=== PATIENT | male | born 1965 | race Two or more races ===

== ENCOUNTER 2017-04-23 18:11 | Inpatient (IN) | payer SELFPAY ==
[~2017-04-23] VITALS: Ht 177.8 cm; Wt 64.1 kg
[~2017-04-23 18:11] MED LIST: AMOX875T PO; ASPI-482 PO; OMEP20TA63 PO; OXYC-323 PO
--- NOTE | 2017-04-23 18:49 | EKG ---
[facility] [address] [place] [address] Test Date: 2017-04-23 Test Time: 18:33:20 Pat Name: LETICIA NO Department: Room: Gender: M Resident Buyer: YUE : 1965 Requested By: EDITH VALENZUELA Order Number: [id number] Reading MD: Selvin Ritter Measurements Intervals [place] Rate: 63 P: 0 RI: 224 QRS: 15 QRSD: 100 T: 34 QT: 378 QTc: 390 Interpretive Statements SINUS RHYTHM PROLONGED RI INTERVAL LOW LIMB LEAD VOLTAGE RI6.01 Unconfirmed report Compared to ECG 03/04/2017 12:14:56 First degree AV block now present Atrial fibrillation no longer present Electronically Signed On 05-04-2017 12:34:54 CDT by Selvin Ritter
[2017-04-23 18:57] LABS: BASO # 0.1 x10^3/uL (0.0-0.2); BASO % 1 % (0-3); EOS % 4 % (0-3); HEMOGLOBIN 10.8 g/dL (13.0-17.5); LYMPH # 1.6 x10^3/uL (1.0-4.8); LYMPH % 22 % (24-48); MEAN CORPUSCULAR HEMOGLOBIN 35 pg (25-35); MEAN CORPUSCULAR HGB CONC 34 g/dL (31-37); MEAN CORPUSCULAR VOLUME 103 fL (79-100); MONO % 6 % (0-9); NEUT % 67 % (31-73); PLATELET COUNT 189 x10^3/uL (140-400); RED CELL DISTRIBUTION WIDTH 13.3 % (11.5-14.5); WHITE BLOOD COUNT 7.4 x10^3/uL (4.0-11.0)
[2017-04-23 19:04] LABS: CALCIUM 9.1 mg/dL (8.5-10.1); GFR 77.9; POTASSIUM 4.6 mmol/L (3.5-5.1)
[2017-04-23 19:11] LABS: ALBUMIN 4.1 g/dL (3.4-5.0); ALBUMIN/GLOBULIN RATIO 1.2 (1.0-1.7); TOTAL BILIRUBIN 0.7 mg/dL (0.2-1.0); TOTAL PROTEIN 7.4 g/dL (6.4-8.2)
[2017-04-23] MEDS ORDERED: ACETAMINOPHEN 500 MG TABLET PO ONE (20:00)
[2017-04-23 20:32] LABS: BARBITURATES NEG (NEG); BENZODIAZEPINES NEG (NEG); CANNABINOIDS POS (NEG); COCAINE NEG (NEG); METHADONE NEG (NEG); OPIATES NEG (NEG); PHENCYCLIDINE NEG (NEG)
--- NOTE | 2017-04-23 20:56 | PHYS DOC ---
Past Medical History Past Medical History: Depression, Other Additional Past Medical Histor: PTSD, BRADYCARDIA Past Surgical History: Other Additional Past Surgical Histo: R thumb Alcohol Use: Heavy Drug Use: Marijuana Adult General Chief Complaint Chief Complaint: CHEST PAIN HPI HPI Patient is a 52 year old male with history of alcohol abuse, dependence who is evaluated this facility 2 weeks ago for syncope and bradycardia. It is recommended at that time that the patient had a pacemaker placed. Patient decided to leave the hospital AGAINST MEDICAL ADVICE. 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 Denies trauma, headache, chest pain, palpitations shortness breath. Currently asymptomatic. Patient acknowledges drinking alcohol prior to ED arrival after work. Denies illicit drug use with exception of marijuana. Review of Systems Review of Systems Review symptoms as per history of present illness. All other review symptoms are negative. Current Medications Current Medications Current Medications Medications (Trade) Dose Ordered Sig/Rose Mary Start Time Stop Time Status Last Admin Dose Admin Acetaminophen (Tylenol) 1,000 mg 1X ONCE 04/23/17 20:00 04/23/17 20:01 DC 04/23/17 20:03 1,000 MG Allergies Allergies Allergies Coded Allergies Type Severity Reaction Last Updated Verified No Known Drug Allergies 03/04/17 No Physical Exam Physical Exam Constitutional: Well developed, well nourished, no acute distress, non-toxic appearance. [] HENT: Normocephalic, atraumatic, bilateral external ears normal, oropharynx moist, no oral exudates, nose normal. [] Eyes: PERRLA, EOMI, conjunctiva normal, no discharge. [] Neck: Normal range of motion, no tenderness, supple, no stridor. [] Cardiovascular:Heart rate regular rhythm, no murmur [] Lungs & Thorax: Bilateral breath sounds clear to auscultation [] Abdomen: Bowel sounds normal, soft, no tenderness, no masses, no pulsatile masses. [] Skin: Warm, dry, no erythema, no rash. [] Back: No tenderness, no CVA tenderness. [] Extremities: No tenderness, no cyanosis, no clubbing, ROM intact, no edema. [] Neurologic: Alert and oriented X 3, normal motor function, normal sensory function, no focal deficits noted. [] Psychologic: Affect normal, judgement normal, mood normal. [] Current Patient Data Vital Signs Vital Signs Date Time Temp Pulse Resp B/P (MAP) Pulse Ox O2 Delivery O2 Flow Rate FiO2 04/23/17 18:31 98.1 71 18 145/87 (106) 99 Room Air 98.1 Lab Values Laboratory Tests Test 04/23/17 18:45 04/23/17 20:16 White Blood Count 7.4 x10^3/uL (4.0-11.0) Red Blood Count 3.10 x10^6/uL (4.30-5.70) L Hemoglobin 10.8 g/dL (13.0-17.5) L Hematocrit 32.0 % (39.0-53.0) L Mean Corpuscular Volume 103 fL (79-100) H Mean Corpuscular Hemoglobin 35 pg (25-35) Mean Corpuscular Hemoglobin Concent 34 g/dL (31-37) Red Cell Distribution Width 13.3 % (11.5-14.5) Platelet Count 189 x10^3/uL (140-400) Neutrophils (%) (Auto) 67 % (31-73) Lymphocytes (%) (Auto) 22 % (24-48) L Monocytes (%) (Auto) 6 % (0-9) Eosinophils (%) (Auto) 4 % (0-3) H Basophils (%) (Auto) 1 % (0-3) Neutrophils # (Auto) 5.0 x10^3uL (1.8-7.7) Lymphocytes # (Auto) 1.6 x10^3/uL (1.0-4.8) Monocytes # (Auto) 0.4 x10^3/uL (0.0-1.1) Eosinophils # (Auto) 0.3 x10^3/uL (0.0-0.7) Basophils # (Auto) 0.1 x10^3/uL (0.0-0.2) Sodium Level 137 mmol/L (136-145) Potassium Level 4.6 mmol/L (3.5-5.1) Chloride Level 99 mmol/L (98-107) Carbon Dioxide Level 27 mmol/L (21-32) Anion Gap 11 (6-14) Blood Urea Nitrogen 10 mg/dL (8-26) Creatinine 1.0 mg/dL (0.7-1.3) Estimated GFR (Cockcroft-Gault) 77.9 BUN/Creatinine Ratio 10 (6-20) Glucose Level 99 mg/dL (70-99) Calcium Level 9.1 mg/dL (8.5-10.1) Total Bilirubin 0.7 mg/dL (0.2-1.0) Aspartate Amino Transferase (AST) 50 U/L (15-37) H Alanine Aminotransferase (ALT) 36 U/L (16-63) Alkaline Phosphatase 70 U/L (46-116) Creatine Kinase 211 U/L (39-308) Troponin I Quantitative < 0.017 ng/mL (0.000-0.055) MM-Flr-A-Type Natriuretic Peptide 59 pg/mL (0-124) Total Protein 7.4 g/dL (6.4-8.2) Albumin 4.1 g/dL (3.4-5.0) Albumin/Globulin Ratio 1.2 (1.0-1.7) Ethyl Alcohol Level 244 mg/dL (0-10) H Urine Opiates Screen Neg (NEG) Urine Methadone Screen Neg (NEG) Urine Barbiturates Neg (NEG) Urine Phencyclidine Screen Neg (NEG) Urine Amphetamine/Methamphetamine Neg (NEG) Urine Benzodiazepines Screen Neg (NEG) Urine Cocaine Screen Neg (NEG) Urine Cannabinoids Screen Pos (NEG) Urine Ethyl Alcohol Pos (NEG) Laboratory Tests 04/23/17 18:45 Laboratory Tests 04/23/17 18:45 EKG EKG [EKG: Sinus rhythm, no acute ST-T wave changes.] Radiology/Procedures Radiology/Procedures [Chest x-ray: No acute cardiopulmonary disease.] Course & Med Decision Making Course & Med Decision Making Pertinent Labs and Imaging studies reviewed. (See chart for details) [Syncope. Patient vital signs stable. Dr. Romero in ED for admission. Courtesy bridges provided.] Dragon Disclaimer Dragon Disclaimer This electronic medical record was generated, in whole or in part, using a voice recognition dictation system. Departure Departure Impression: Primary Impression: Syncope Disposition: ADMITTED INPATIENT Admitting Physician: Other (Dr. Romero) Referrals: NO PCP (PCP) EDITH VALENZUELA DO Apr 23, 2017 20:56
[2017-04-23] MEDS ORDERED: ASA/APAP/CAFFEINE 250/250/65MG TABLET. PO PRN (22:00)
[2017-04-23] MEDS ORDERED: ACETAMINOPHEN 325 MG TABLET. PO PRN (22:00)
--- NOTE | 2017-04-23 22:30 | HP ---
ADMIT DATE: 04/23/2017 CHIEF COMPLAINT: Syncope. HISTORY OF PRESENT ILLNESS: The patient is a 52-year-old gentleman who relates that he had been admitted to [facility] a few days ago but left AMA, despite recommendations of pacemaker for symptomatic bradycardia. Since his discharge, he apparently has had multiple syncopal episodes, sometimes with injury including hitting his head. Today, he apparently had yet another episode Or three), ended up at his mom's place and his mother decided to take him to the Emergency Room. In the Emergency Room, currently he is asymptomatic. He does request pain medications for headache as he states he actually did hit his head. He drinks alcohol regularly, downplays this, but mother affirms daily use. He admits to 2 beers prior to coming to the Emergency Room. He denies any illicit drug use save for occasional pot. Of note, his urine drug screen is actually positive for cannabinoids, otherwise negative. His alcohol level is 244, indicating 2 beers are quite potent in him.... PAST MEDICAL HISTORY: Bradycardia as above, alcoholism, posttraumatic stress disorder, depression. PAST SURGICAL HISTORY: None. FAMILY HISTORY: None. SOCIAL HISTORY: Lives with a roommate. Denies any tobacco use, occasional marijuana. Admits to 3 beers 3 times a week, which I suspect is grossly underestimating his actual use. ALLERGIES: No known drug allergies. MEDICATIONS: None listed. REVIEW OF SYSTEMS: Positive as per HPI. Currently, feels fine and denies any other symptoms in entire organ system review. PHYSICAL EXAMINATION: VITAL SIGNS: Show blood pressure of 145/87, heart rate of 71, respiratory rate at 18. GENERAL: This is a 52-year-old man, alert and oriented, no acute distress. HEENT: Shows no scleral icterus. Oral mucosa is pink and moist. Dentition is poor. NECK: Supple, without any lymphadenopathy. LUNGS: Clear. HEART: Regular rate and rhythm. ABDOMEN: Has positive bowel sounds, soft, nontender. EXTREMITIES: Show no edema. SKIN: Warm, soft and dry. LABORATORY DATA: CBC with a WBC of 7.4, hemoglobin 10.8, MCV of 103 and platelets of 189. Chemistries with a BUN and creatinine of 10 and 0.1, normal electrolytes. AST is slightly elevated at 50, other LFTs within normal. Albumin at 4.1. Initial troponin is negative. Urine shows no signs of infection. IMAGING: Chest x-ray reviewed by myself reveals clear lung poe and normal heart size. ASSESSMENT AND PLAN: The patient is a 52-year-old gentleman who presents with recurrent syncope, suspected to be secondary to bradycardia. He had been worked up during his last hospitalization, was recommended to receive pacer. He is not willing to go through with pacer placement. His biztalk developer, Dr. Morgan, will be consulted in the morning. In the meantime, he will be admitted, [facility] protocol for alcohol withdrawal prevention will be instituted. We will monitor his liver function tests and other electrolytes as well. He does not appear to be dehydrated at this time. He requests antibiotics for a sinusitis diagnosed at previous hospitalization. He did fill a script for antibiotics, but never took them. will start on Augmentin NILO SKINNER MD DR: UR/nts JOB#: [id number] / [id number] ALANIS
[2017-04-23 22:50] VITALS: BP 108/66
[2017-04-23] MEDS: chlordiazePOXIDE HCL 25 MG CAPSULE PO SCH (23:38)
[2017-04-24] VITALS (7 sets, daily range): BP systolic 107–140; BP diastolic 55–81
[2017-04-24] MEDS: chlordiazePOXIDE HCL 25 MG CAPSULE PO SCH ×4 (03:29→22:29)
[2017-04-24] MEDS: PANTOPRAZOLE 40 MG TABLET.DR. PO SCH (09:27)
[2017-04-24] MEDS: AMOXICILLIN/K CLAV 875/125MG TABLET. PO SCH ×2 (09:27→21:01)
[2017-04-24] MEDS: ASPIRIN ENTERIC COATED 81 MG TABLET.DR. PO SCH (09:28)
[2017-04-24] MEDS: MULTIVIT INFUSN,ADULT 4,VIT K 10 ML, THIAMINE 100 MG, FOLIC ACID 1 MG in IV NORMAL SALI... IV SCH (09:30)
--- NOTE | 2017-04-24 09:39 | RAD ---
EXAM: Chest, single view. HISTORY: Shortness of breath. COMPARISON: 03/04/2017. FINDINGS: A frontal view of the chest is obtained. There is no infiltrate, effusion or pneumothorax. The heart is normal in size. There are few calcified granulomas. There are healed left rib fractures. There are prominent air-filled loops of bowel within the upper abdomen. IMPRESSION: No acute pulmonary finding.
[2017-04-24] MEDS ORDERED: MORPHINE SULFATE 4 MG/ML DISP.SYRIN. IV PRN (09:45)
--- NOTE | 2017-04-24 13:05 | PDOC ---
PROGRESS NOTES Chief Complaint Chief Complaint 1. Syncope in the background of severe bradycardia 2. 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 recent fall History of Present Illness History of Present Illness Sore neck from his prev fall - no injuries Ready to have pacer done this time Eating lunch Request hydrocodone for sore neck PLAN: Lortab prn Await cards rounds - will likely need pacer NO AV roosevelt blocking agents pls Keep TELE Vitals Vitals Vital Signs Date Time Temp Pulse Resp B/P (MAP) Pulse Ox O2 Delivery O2 Flow Rate FiO2 04/24/17 10:58 98.2 54 18 111/66 (81) 97 Room Air 98.2 04/24/17 08:00 2.0 Physical Exam General: Alert, Oriented X3, Cooperative Heart: Regular rate Lungs: Clear, Other Abdomen: Normal bowel sounds, Soft Extremities: No clubbing, No cyanosis Skin: No rashes, No breakdown Labs LABS Laboratory Tests Test 04/23/17 18:45 04/23/17 20:16 White Blood Count 7.4 x10^3/uL (4.0-11.0) Red Blood Count 3.10 x10^6/uL (4.30-5.70) Hemoglobin 10.8 g/dL (13.0-17.5) Hematocrit 32.0 % (39.0-53.0) Mean Corpuscular Volume 103 fL (79-100) Mean Corpuscular Hemoglobin 35 pg (25-35) Mean Corpuscular Hemoglobin Concent 34 g/dL (31-37) Red Cell Distribution Width 13.3 % (11.5-14.5) Platelet Count 189 x10^3/uL (140-400) Neutrophils (%) (Auto) 67 % (31-73) Lymphocytes (%) (Auto) 22 % (24-48) Monocytes (%) (Auto) 6 % (0-9) Eosinophils (%) (Auto) 4 % (0-3) Basophils (%) (Auto) 1 % (0-3) Neutrophils # (Auto) 5.0 x10^3uL (1.8-7.7) Lymphocytes # (Auto) 1.6 x10^3/uL (1.0-4.8) Monocytes # (Auto) 0.4 x10^3/uL (0.0-1.1) Eosinophils # (Auto) 0.3 x10^3/uL (0.0-0.7) Basophils # (Auto) 0.1 x10^3/uL (0.0-0.2) Sodium Level 137 mmol/L (136-145) Potassium Level 4.6 mmol/L (3.5-5.1) Chloride Level 99 mmol/L (98-107) Carbon Dioxide Level 27 mmol/L (21-32) Anion Gap 11 (6-14) Blood Urea Nitrogen 10 mg/dL (8-26) Creatinine 1.0 mg/dL (0.7-1.3) Estimated GFR (Cockcroft-Gault) 77.9 BUN/Creatinine Ratio 10 (6-20) Glucose Level 99 mg/dL (70-99) Calcium Level 9.1 mg/dL (8.5-10.1) Total Bilirubin 0.7 mg/dL (0.2-1.0) Aspartate Amino Transf (AST/SGOT) 50 U/L (15-37) Alanine Aminotransferase (ALT/SGPT) 36 U/L (16-63) Alkaline Phosphatase 70 U/L (46-116) Creatine Kinase 211 U/L (39-308) Troponin I Quantitative < 0.017 ng/mL (0.000-0.055) TY-Ixm-S-Type Natriuretic Peptide 59 pg/mL (0-124) Total Protein 7.4 g/dL (6.4-8.2) Albumin 4.1 g/dL (3.4-5.0) Albumin/Globulin Ratio 1.2 (1.0-1.7) Thyroid Stimulating Hormone (TSH) 1.213 uIU/mL (0.358-3.74) Ethyl Alcohol Level 244 mg/dL (0-10) Urine Opiates Screen Neg (NEG) Urine Methadone Screen Neg (NEG) Urine Barbiturates Neg (NEG) Urine Phencyclidine Screen Neg (NEG) Urine Amphetamine/Methamphetamine Neg (NEG) Urine Benzodiazepines Screen Neg (NEG) Urine Cocaine Screen Neg (NEG) Urine Cannabinoids Screen Pos (NEG) Urine Ethyl Alcohol Pos (NEG) Review of Systems Review of Systems \sore neck, all else is neg Assessment and Plan Assessmemt and Plan Problems Medical Problems: (1) Syncope Status: Acute Problems: Comment Review of Relevant I have reviewed the following items edy (where applicable) has been applied. Labs Laboratory Tests Test 04/23/17 18:45 04/23/17 20:16 White Blood Count 7.4 x10^3/uL (4.0-11.0) Red Blood Count 3.10 x10^6/uL (4.30-5.70) Hemoglobin 10.8 g/dL (13.0-17.5) Hematocrit 32.0 % (39.0-53.0) Mean Corpuscular Volume 103 fL (79-100) Mean Corpuscular Hemoglobin 35 pg (25-35) Mean Corpuscular Hemoglobin Concent 34 g/dL (31-37) Red Cell Distribution Width 13.3 % (11.5-14.5) Platelet Count 189 x10^3/uL (140-400) Neutrophils (%) (Auto) 67 % (31-73) Lymphocytes (%) (Auto) 22 % (24-48) Monocytes (%) (Auto) 6 % (0-9) Eosinophils (%) (Auto) 4 % (0-3) Basophils (%) (Auto) 1 % (0-3) Neutrophils # (Auto) 5.0 x10^3uL (1.8-7.7) Lymphocytes # (Auto) 1.6 x10^3/uL (1.0-4.8) Monocytes # (Auto) 0.4 x10^3/uL (0.0-1.1) Eosinophils # (Auto) 0.3 x10^3/uL (0.0-0.7) Basophils # (Auto) 0.1 x10^3/uL (0.0-0.2) Sodium Level 137 mmol/L (136-145) Potassium Level 4.6 mmol/L (3.5-5.1) Chloride Level 99 mmol/L (98-107) Carbon Dioxide Level 27 mmol/L (21-32) Anion Gap 11 (6-14) Blood Urea Nitrogen 10 mg/dL (8-26) Creatinine 1.0 mg/dL (0.7-1.3) Estimated GFR (Cockcroft-Gault) 77.9 BUN/Creatinine Ratio 10 (6-20) Glucose Level 99 mg/dL (70-99) Calcium Level 9.1 mg/dL (8.5-10.1) Total Bilirubin 0.7 mg/dL (0.2-1.0) Aspartate Amino Transf (AST/SGOT) 50 U/L (15-37) Alanine Aminotransferase (ALT/SGPT) 36 U/L (16-63) Alkaline Phosphatase 70 U/L (46-116) Creatine Kinase 211 U/L (39-308) Troponin I Quantitative < 0.017 ng/mL (0.000-0.055) LW-Mtp-J-Type Natriuretic Peptide 59 pg/mL (0-124) Total Protein 7.4 g/dL (6.4-8.2) Albumin 4.1 g/dL (3.4-5.0) Albumin/Globulin Ratio 1.2 (1.0-1.7) Thyroid Stimulating Hormone (TSH) 1.213 uIU/mL (0.358-3.74) Ethyl Alcohol Level 244 mg/dL (0-10) Urine Opiates Screen Neg (NEG) Urine Methadone Screen Neg (NEG) Urine Barbiturates Neg (NEG) Urine Phencyclidine Screen Neg (NEG) Urine Amphetamine/Methamphetamine Neg (NEG) Urine Benzodiazepines Screen Neg (NEG) Urine Cocaine Screen Neg (NEG) Urine Cannabinoids Screen Pos (NEG) Urine Ethyl Alcohol Pos (NEG) Laboratory Tests Test 04/23/17 18:45 04/23/17 20:16 White Blood Count 7.4 x10^3/uL (4.0-11.0) Red Blood Count 3.10 x10^6/uL (4.30-5.70) Hemoglobin 10.8 g/dL (13.0-17.5) Hematocrit 32.0 % (39.0-53.0) Mean Corpuscular Volume 103 fL (79-100) Mean Corpuscular Hemoglobin 35 pg (25-35) Mean Corpuscular Hemoglobin Concent 34 g/dL (31-37) Red Cell Distribution Width 13.3 % (11.5-14.5) Platelet Count 189 x10^3/uL (140-400) Neutrophils (%) (Auto) 67 % (31-73) Lymphocytes (%) (Auto) 22 % (24-48) Monocytes (%) (Auto) 6 % (0-9) Eosinophils (%) (Auto) 4 % (0-3) Basophils (%) (Auto) 1 % (0-3) Neutrophils # (Auto) 5.0 x10^3uL (1.8-7.7) Lymphocytes # (Auto) 1.6 x10^3/uL (1.0-4.8) Monocytes # (Auto) 0.4 x10^3/uL (0.0-1.1) Eosinophils # (Auto) 0.3 x10^3/uL (0.0-0.7) Basophils # (Auto) 0.1 x10^3/uL (0.0-0.2) Sodium Level 137 mmol/L (136-145) Potassium Level 4.6 mmol/L (3.5-5.1) Chloride Level 99 mmol/L (98-107) Carbon Dioxide Level 27 mmol/L (21-32) Anion Gap 11 (6-14) Blood Urea Nitrogen 10 mg/dL (8-26) Creatinine 1.0 mg/dL (0.7-1.3) Estimated GFR (Cockcroft-Gault) 77.9 BUN/Creatinine Ratio 10 (6-20) Glucose Level 99 mg/dL (70-99) Calcium Level 9.1 mg/dL (8.5-10.1) Total Bilirubin 0.7 mg/dL (0.2-1.0) Aspartate Amino Transf (AST/SGOT) 50 U/L (15-37) Alanine Aminotransferase (ALT/SGPT) 36 U/L (16-63) Alkaline Phosphatase 70 U/L (46-116) Creatine Kinase 211 U/L (39-308) Troponin I Quantitative < 0.017 ng/mL (0.000-0.055) VO-Uzj-X-Type Natriuretic Peptide 59 pg/mL (0-124) Total Protein 7.4 g/dL (6.4-8.2) Albumin 4.1 g/dL (3.4-5.0) Albumin/Globulin Ratio 1.2 (1.0-1.7) Thyroid Stimulating Hormone (TSH) 1.213 uIU/mL (0.358-3.74) Ethyl Alcohol Level 244 mg/dL (0-10) Urine Opiates Screen Neg (NEG) Urine Methadone Screen Neg (NEG) Urine Barbiturates Neg (NEG) Urine Phencyclidine Screen Neg (NEG) Urine Amphetamine/Methamphetamine Neg (NEG) Urine Benzodiazepines Screen Neg (NEG) Urine Cocaine Screen Neg (NEG) Urine Cannabinoids Screen Pos (NEG) Urine Ethyl Alcohol Pos (NEG) Medications Current Medications Acetaminophen (Tylenol) 1,000 mg 1X ONCE PO Last administered on 04/23/17 20: 03; Start 04/23/17 at 20:00; Stop 04/23/17 at 20:01; Status DC Aspirin (Ecotrin) 81 mg DAILY PO Last administered on 04/24/17 09:28; Start at 09:00 Pantoprazole Sodium (Protonix) 40 mg DAILYAC PO Last administered on 04/24/17 09:27; Start 04/24/17 at 07:30 Acetaminophen/ Aspirin/Caffeine (Excedrin Migraine) 1 tab PRN Q6HRS PRN PO MIGRAINE HEADACHE Last administered on 04/24/17 09:28; Start 04/23/17 at 22:00 Acetaminophen (Tylenol) 650 mg PRN Q6HRS PRN PO HEADACHE; Start 04/23/17 at 22: 00 Multivitamins 10 ml/Thiamine HCl 100 mg/Folic Acid 1 mg/Sodium Chloride 1,011.2 ml @ 100 mls/ hr DAILY IV Last administered on 04/24/17 09:30; Start at 09:00; Stop 04/29/17 at 08:59 Chlordiazepoxide (Librium) 25 mg Q6H PO Last administered on 04/24/17 10:19; Start 04/23/17 at 22:30; Stop 04/25/17 at 04:31 Amoxicillin/ Clavulanate Potassium (Augmentin 875/ 125mg) 1 tab BID PO Last administered on 04/24/17 09:27; Start 04/24/17 at 09:00 Morphine Sulfate 1 mg PRN Q2HR PRN IV PAIN; Start 04/24/17 at 09:45 Ondansetron HCl (Zofran) 4 mg PRN Q6HRS PRN IV NAUSEA/VOMITING; Start 04/24/17 at 09:45 Active Scripts Active Reported Amoxicillin 875 Mg Tablet 1 Tab PO BID Percocet 5-325 Mg Tablet (Oxycodone/Acetaminophen) 1 Each Tablet 1 Tab PO Q6HRS Aspir 81 (Aspirin) 81 Mg Tablet. 1 Tab PO DAILY Prilosec Otc (Omeprazole Magnesium) 20 Mg Tablet. 1 Tab PO DAILY Vitals/I & O Vital Sign - Last 24 Hours 04/23/17 04/23/17 04/23/17 04/23/17 18:31 19:00 19:30 20:00 Temp 98.1 98.1 Pulse 71 60 58 54 Resp 18 23 26 16 B/P (MAP) 145/87 (106) 128/81 (97) 112/72 (85) 115/70 (85) Pulse Ox 99 98 100 97 O2 Delivery Room Air 04/23/17 04/23/17 04/23/17 04/23/17 20:30 21:00 21:30 22:00 Pulse 60 54 64 64 Resp 15 15 B/P (MAP) 122/79 (93) 117/71 (86) 123/75 (91) 137/68 (91) Pulse Ox 98 99 99 99 04/23/17 04/23/17 04/23/17 04/24/17 22:50 22:50 23:09 03:20 Temp 97.7 97.7 98.0 97.7 97.7 98.0 Pulse 57 57 59 Resp 18 18 18 B/P (MAP) 108/66 (80) 108/66 (80) 107/55 (72) Pulse Ox 99 99 99 O2 Delivery Room Air Room Air Room Air Nasal Cannula O2 Flow Rate 2.0 04/24/17 04/24/17 04/24/17 07:00 08:00 10:58 Temp 98.0 98.2 98.0 98.2 Pulse 52 54 Resp 18 18 B/P (MAP) 110/62 (78) 111/66 (81) Pulse Ox 98 97 O2 Delivery Room Air Room Air Room Air O2 Flow Rate 2.0 JARRETT SIBLEY MD Apr 24, 2017 13:05
[2017-04-24] MEDS ORDERED: FLU VACC QS2017-18 (36MOS+)/PF 0.5 ML SYRINGE. VAX IM ONE (14:00)
[2017-04-24] MEDS: HYDROcodone/APAP 5/325MG 1 TAB TABLET PO PRN ×2 (14:39→21:01)
--- NOTE | 2017-04-24 17:47 | PDOC2 ---
CONSULT Date of Consult Date of Consult DATE: 04/24/17 TIME: 17:41 Reason for Consult Reason for Consult: Syncope Referring Physician Referring Physician: Dr. Ayala Identification/Chief Complaint Chief Complaint Syncope Problems: History of Present Illness Reason for Visit: This patient is a 52-year-old gentleman that has a known history of bradycardia. Several years ago he had an admission to [facility] where he was told that he was bradycardic and that he was going to need a pacemaker. Since then he has continued to have some episodes of bradycardia and lately they have been getting worse. He had syncopal episodes that brought him in a few weeks ago and he was found to have bradycardic with a rate in the 30s and with an inappropriate chronotropic response. A pacemaker was recommended at that point. The patient decided he did not want a pacemaker at that time and left the hospital. Since then he has continued to be bradycardic and to have several syncopal episodes and after one of which he came back into the hospital. At the time that I saw the patient is resting comfortably. In sinus bradycardia. He denies any chest pains. The recent MPI showed a left ventricular ejection fraction of 50% and no apparent ischemia. Past Medical History Cardiovascular: Syncope, Other Endocrine: No pertinent hx Social History ALCOHOL: other Current Problem List Problem List Problems Medical Problems: (1) Syncope Status: Acute Current Medications Current Medications Current Medications Acetaminophen (Tylenol) 1,000 mg 1X ONCE PO Last administered on 04/23/17 20: 03; Start 04/23/17 at 20:00; Stop 04/23/17 at 20:01; Status DC Aspirin (Ecotrin) 81 mg DAILY PO Last administered on 04/24/17 09:28; Start at 09:00 Pantoprazole Sodium (Protonix) 40 mg DAILYAC PO Last administered on 04/24/17 09:27; Start 04/24/17 at 07:30 Acetaminophen/ Aspirin/Caffeine (Excedrin Migraine) 1 tab PRN Q6HRS PRN PO MIGRAINE HEADACHE Last administered on 04/24/17 09:28; Start 04/23/17 at 22:00 Acetaminophen (Tylenol) 650 mg PRN Q6HRS PRN PO HEADACHE; Start 04/23/17 at 22: 00 Multivitamins 10 ml/Thiamine HCl 100 mg/Folic Acid 1 mg/Sodium Chloride 1,011.2 ml @ 100 mls/ hr DAILY IV Last administered on 04/24/17 09:30; Start at 09:00; Stop 04/29/17 at 08:59 Chlordiazepoxide (Librium) 25 mg Q6H PO Last administered on 04/24/17 16:45; Start 04/23/17 at 22:30; Stop 04/25/17 at 04:31 Amoxicillin/ Clavulanate Potassium (Augmentin 875/ 125mg) 1 tab BID PO Last administered on 04/24/17 09:27; Start 04/24/17 at 09:00 Morphine Sulfate 1 mg PRN Q2HR PRN IV PAIN; Start 04/24/17 at 09:45 Ondansetron HCl (Zofran) 4 mg PRN Q6HRS PRN IV NAUSEA/VOMITING; Start 04/24/17 at 09:45 Acetaminophen/ Hydrocodone Bitart (Lortab 5/325) 1 tab PRN Q4HRS PRN PO PAIN Last administered on 04/24/17 14:39; Start 04/24/17 at 13:15 Influenza Virus Vaccine Quadrival (Fluarix Quad 0538-8706 Syringe) 0.5 ml ONCE ONCE VAX IM Last administered on 04/24/17 16:49; Start 04/24/17 at 14:00; Stop 04/24/17 at 14:01; Status DC Active Scripts Active Reported Amoxicillin 875 Mg Tablet 1 Tab PO BID Percocet 5-325 Mg Tablet (Oxycodone/Acetaminophen) 1 Each Tablet 1 Tab PO Q6HRS Aspir 81 (Aspirin) 81 Mg Tablet. 1 Tab PO DAILY Prilosec Otc (Omeprazole Magnesium) 20 Mg Tablet. 1 Tab PO DAILY Allergies Allergies: Coded Allergies: No Known Drug Allergies (Unverified , 03/04/17) Physical Exam General: Alert, Oriented X3, Cooperative HEENT: Atraumatic, PERRLA Lungs: Clear to auscultation Heart: Regular rate, Normal S1, Normal S2 Abdomen: Normal bowel sounds, Soft Extremities: No edema Vitals VITALS Vital Signs Date Time Temp Pulse Resp B/P (MAP) Pulse Ox O2 Delivery O2 Flow Rate FiO2 04/24/17 15:47 96 Room Air 2.0 04/24/17 15:22 98.2 57 19 140/81 (100) 98.2 Labs Labs Laboratory Tests Test 04/23/17 18:45 04/23/17 20:16 White Blood Count 7.4 x10^3/uL (4.0-11.0) Red Blood Count 3.10 x10^6/uL (4.30-5.70) Hemoglobin 10.8 g/dL (13.0-17.5) Hematocrit 32.0 % (39.0-53.0) Mean Corpuscular Volume 103 fL (79-100) Mean Corpuscular Hemoglobin 35 pg (25-35) Mean Corpuscular Hemoglobin Concent 34 g/dL (31-37) Red Cell Distribution Width 13.3 % (11.5-14.5) Platelet Count 189 x10^3/uL (140-400) Neutrophils (%) (Auto) 67 % (31-73) Lymphocytes (%) (Auto) 22 % (24-48) Monocytes (%) (Auto) 6 % (0-9) Eosinophils (%) (Auto) 4 % (0-3) Basophils (%) (Auto) 1 % (0-3) Neutrophils # (Auto) 5.0 x10^3uL (1.8-7.7) Lymphocytes # (Auto) 1.6 x10^3/uL (1.0-4.8) Monocytes # (Auto) 0.4 x10^3/uL (0.0-1.1) Eosinophils # (Auto) 0.3 x10^3/uL (0.0-0.7) Basophils # (Auto) 0.1 x10^3/uL (0.0-0.2) Sodium Level 137 mmol/L (136-145) Potassium Level 4.6 mmol/L (3.5-5.1) Chloride Level 99 mmol/L (98-107) Carbon Dioxide Level 27 mmol/L (21-32) Anion Gap 11 (6-14) Blood Urea Nitrogen 10 mg/dL (8-26) Creatinine 1.0 mg/dL (0.7-1.3) Estimated GFR (Cockcroft-Gault) 77.9 BUN/Creatinine Ratio 10 (6-20) Glucose Level 99 mg/dL (70-99) Calcium Level 9.1 mg/dL (8.5-10.1) Total Bilirubin 0.7 mg/dL (0.2-1.0) Aspartate Amino Transf (AST/SGOT) 50 U/L (15-37) Alanine Aminotransferase (ALT/SGPT) 36 U/L (16-63) Alkaline Phosphatase 70 U/L (46-116) Creatine Kinase 211 U/L (39-308) Troponin I Quantitative < 0.017 ng/mL (0.000-0.055) SU-[id number]-Type Natriuretic Peptide 59 pg/mL (0-124) Total Protein 7.4 g/dL (6.4-8.2) Albumin 4.1 g/dL (3.4-5.0) Albumin/Globulin Ratio 1.2 (1.0-1.7) Thyroid Stimulating Hormone (TSH) 1.213 uIU/mL (0.358-3.74) Ethyl Alcohol Level 244 mg/dL (0-10) Urine Opiates Screen Neg (NEG) Urine Methadone Screen Neg (NEG) Urine Barbiturates Neg (NEG) Urine Phencyclidine Screen Neg (NEG) Urine Amphetamine/Methamphetamine Neg (NEG) Urine Benzodiazepines Screen Neg (NEG) Urine Cocaine Screen Neg (NEG) Urine Cannabinoids Screen Pos (NEG) Urine Ethyl Alcohol Pos (NEG) Laboratory Tests Test 04/23/17 18:45 04/23/17 20:16 White Blood Count 7.4 x10^3/uL (4.0-11.0) Red Blood Count 3.10 x10^6/uL (4.30-5.70) Hemoglobin 10.8 g/dL (13.0-17.5) Hematocrit 32.0 % (39.0-53.0) Mean Corpuscular Volume 103 fL (79-100) Mean Corpuscular Hemoglobin 35 pg (25-35) Mean Corpuscular Hemoglobin Concent 34 g/dL (31-37) Red Cell Distribution Width 13.3 % (11.5-14.5) Platelet Count 189 x10^3/uL (140-400) Neutrophils (%) (Auto) 67 % (31-73) Lymphocytes (%) (Auto) 22 % (24-48) Monocytes (%) (Auto) 6 % (0-9) Eosinophils (%) (Auto) 4 % (0-3) Basophils (%) (Auto) 1 % (0-3) Neutrophils # (Auto) 5.0 x10^3uL (1.8-7.7) Lymphocytes # (Auto) 1.6 x10^3/uL (1.0-4.8) Monocytes # (Auto) 0.4 x10^3/uL (0.0-1.1) Eosinophils # (Auto) 0.3 x10^3/uL (0.0-0.7) Basophils # (Auto) 0.1 x10^3/uL (0.0-0.2) Sodium Level 137 mmol/L (136-145) Potassium Level 4.6 mmol/L (3.5-5.1) Chloride Level 99 mmol/L (98-107) Carbon Dioxide Level 27 mmol/L (21-32) Anion Gap 11 (6-14) Blood Urea Nitrogen 10 mg/dL (8-26) Creatinine 1.0 mg/dL (0.7-1.3) Estimated GFR (Cockcroft-Gault) 77.9 BUN/Creatinine Ratio 10 (6-20) Glucose Level 99 mg/dL (70-99) Calcium Level 9.1 mg/dL (8.5-10.1) Total Bilirubin 0.7 mg/dL (0.2-1.0) Aspartate Amino Transf (AST/SGOT) 50 U/L (15-37) Alanine Aminotransferase (ALT/SGPT) 36 U/L (16-63) Alkaline Phosphatase 70 U/L (46-116) Creatine Kinase 211 U/L (39-308) Troponin I Quantitative < 0.017 ng/mL (0.000-0.055) RZ-Uot-Z-Type Natriuretic Peptide 59 pg/mL (0-124) Total Protein 7.4 g/dL (6.4-8.2) Albumin 4.1 g/dL (3.4-5.0) Albumin/Globulin Ratio 1.2 (1.0-1.7) Thyroid Stimulating Hormone (TSH) 1.213 uIU/mL (0.358-3.74) Ethyl Alcohol Level 244 mg/dL (0-10) Urine Opiates Screen Neg (NEG) Urine Methadone Screen Neg (NEG) Urine Barbiturates Neg (NEG) Urine Phencyclidine Screen Neg (NEG) Urine Amphetamine/Methamphetamine Neg (NEG) Urine Benzodiazepines Screen Neg (NEG) Urine Cocaine Screen Neg (NEG) Urine Cannabinoids Screen Pos (NEG) Urine Ethyl Alcohol Pos (NEG) Assessment/Plan Assessment/Plan This patient comes in with recurring syncope that appears to be secondary to bradycardia and inappropriate chronotropic response. I have recommended a pacemaker for this patient in the previous admission and he was not agreeable to that. The patient now returns and he is agreeable to have the pacemaker. We've discussed the situation options and risks and he is aware of it. Will set up for insertion of a dual-chamber pacemaker tomorrow. Thank you very much for asking me to participate in the care of this patient COLE WARD MD Apr 24, 2017 17:47
--- NOTE | 2017-04-24 17:48 | PDOC ---
MODERATE SEDATION ASSESSMENT RISKS/ALTERNATIVES Risks/Alternatives Risks and alternatives of this type of sedation and procedure discussed with: RISK/ALTERNATIVES: Patient H & P ON CHART H & P H & P on chart and reviewed for co-morbid conditions and appropriate labs. H&P ON CHART: Yes STATUS PREG STATUS ASSESSED: Yes MEDS/ALLERGIES REVIEWED Meds/Allergies Reviewed Medications and Allergies including time and route of recently administered narcotics and sedatives. MEDS/ALLERGIES REVIEWED: Yes ASA RATING ASA RATING: II AIRWAY ASSESSMENT Airway Assessment Airway patency, oral function limitations, presence of caps, crowns, dentures, partials, and ability to extend neck assessed. AIRWAY ASSESSMENT: Yes MALLAMPATI SCORE MALLAMPATI SCORE: I PRE-SEDATION ASSESSMENT PRE-SEDATION ASSESSMENT: Yes COLE WARD MD Apr 24, 2017 17:48
[2017-04-25] VITALS (7 sets, daily range): BP systolic 107–117; BP diastolic 61–72
[2017-04-25] MEDS: HYDROcodone/APAP 5/325MG 1 TAB TABLET PO PRN ×5 (03:44→21:06)
[2017-04-25] MEDS: chlordiazePOXIDE HCL 25 MG CAPSULE PO SCH (03:44)
[2017-04-25] MEDS: MULTIVIT INFUSN,ADULT 4,VIT K 10 ML, THIAMINE 100 MG, FOLIC ACID 1 MG in IV NORMAL SALI... IV SCH (09:00)
[2017-04-25] MEDS: PANTOPRAZOLE 40 MG TABLET.DR. PO SCH (09:09)
[2017-04-25] MEDS: ASPIRIN ENTERIC COATED 81 MG TABLET.DR. PO SCH (09:09)
[2017-04-25] MEDS: AMOXICILLIN/K CLAV 875/125MG TABLET. PO SCH ×2 (09:09→19:53)
[2017-04-25] MEDS ORDERED: LIDOCAINE 2%/EPI 1:100,000 20 ML VIAL. IJ ONE (09:15)
[2017-04-25] MEDS ORDERED: BACITRACIN 50,000 UNIT in IV NORMAL SALINE 250ML 250 ML IRR ONE (09:15)
[2017-04-25] MEDS ORDERED: MIDAZOLAM HCL/PF 5 MG/5 ML VIAL. IV ONE (09:15)
[2017-04-25] MEDS ORDERED: fentaNYL PF VIAL 250 MCG/5 ML VIAL IV ONE (09:15)
--- NOTE | 2017-04-25 10:32 | PDOC ---
PROGRESS NOTES Chief Complaint Chief Complaint 1. Syncope in the background of severe bradycardia 2. 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 recent fall History of Present Illness History of Present Illness NPO Planned for pacer today NO calls overnight PLAN: Pacer today for syncope with bradycardia Dw RN Michelle and pt Vitals Vitals Vital Signs Date Time Temp Pulse Resp B/P (MAP) Pulse Ox O2 Delivery O2 Flow Rate FiO2 04/25/17 10:09 Room Air 04/25/17 08:32 100 2.0 04/25/17 07:00 97.7 49 18 117/70 (86) 97.7 Physical Exam General: Alert, Oriented X3, Cooperative Heart: Regular rate, Normal S1, Normal S2 Lungs: Clear, Other Abdomen: Normal bowel sounds, Soft Extremities: No edema Skin: No rashes, No breakdown Review of Systems Review of Systems sore neck from fall a week ago Assessment and Plan Assessmemt and Plan Problems Medical Problems: (1) Syncope Status: Acute Problems: Comment Review of Relevant I have reviewed the following items edy (where applicable) has been applied. Labs Laboratory Tests Test 04/23/17 18:45 04/23/17 20:16 White Blood Count 7.4 x10^3/uL (4.0-11.0) Red Blood Count 3.10 x10^6/uL (4.30-5.70) Hemoglobin 10.8 g/dL (13.0-17.5) Hematocrit 32.0 % (39.0-53.0) Mean Corpuscular Volume 103 fL (79-100) Mean Corpuscular Hemoglobin 35 pg (25-35) Mean Corpuscular Hemoglobin Concent 34 g/dL (31-37) Red Cell Distribution Width 13.3 % (11.5-14.5) Platelet Count 189 x10^3/uL (140-400) Neutrophils (%) (Auto) 67 % (31-73) Lymphocytes (%) (Auto) 22 % (24-48) Monocytes (%) (Auto) 6 % (0-9) Eosinophils (%) (Auto) 4 % (0-3) Basophils (%) (Auto) 1 % (0-3) Neutrophils # (Auto) 5.0 x10^3uL (1.8-7.7) Lymphocytes # (Auto) 1.6 x10^3/uL (1.0-4.8) Monocytes # (Auto) 0.4 x10^3/uL (0.0-1.1) Eosinophils # (Auto) 0.3 x10^3/uL (0.0-0.7) Basophils # (Auto) 0.1 x10^3/uL (0.0-0.2) Sodium Level 137 mmol/L (136-145) Potassium Level 4.6 mmol/L (3.5-5.1) Chloride Level 99 mmol/L (98-107) Carbon Dioxide Level 27 mmol/L (21-32) Anion Gap 11 (6-14) Blood Urea Nitrogen 10 mg/dL (8-26) Creatinine 1.0 mg/dL (0.7-1.3) Estimated GFR (Cockcroft-Gault) 77.9 BUN/Creatinine Ratio 10 (6-20) Glucose Level 99 mg/dL (70-99) Calcium Level 9.1 mg/dL (8.5-10.1) Total Bilirubin 0.7 mg/dL (0.2-1.0) Aspartate Amino Transf (AST/SGOT) 50 U/L (15-37) Alanine Aminotransferase (ALT/SGPT) 36 U/L (16-63) Alkaline Phosphatase 70 U/L (46-116) Creatine Kinase 211 U/L (39-308) Troponin I Quantitative < 0.017 ng/mL (0.000-0.055) QZ-Zub-H-Type Natriuretic Peptide 59 pg/mL (0-124) Total Protein 7.4 g/dL (6.4-8.2) Albumin 4.1 g/dL (3.4-5.0) Albumin/Globulin Ratio 1.2 (1.0-1.7) Thyroid Stimulating Hormone (TSH) 1.213 uIU/mL (0.358-3.74) Ethyl Alcohol Level 244 mg/dL (0-10) Urine Opiates Screen Neg (NEG) Urine Methadone Screen Neg (NEG) Urine Barbiturates Neg (NEG) Urine Phencyclidine Screen Neg (NEG) Urine Amphetamine/Methamphetamine Neg (NEG) Urine Benzodiazepines Screen Neg (NEG) Urine Cocaine Screen Neg (NEG) Urine Cannabinoids Screen Pos (NEG) Urine Ethyl Alcohol Pos (NEG) Medications Current Medications Acetaminophen (Tylenol) 1,000 mg 1X ONCE PO Last administered on 04/23/17 20: 03; Start 04/23/17 at 20:00; Stop 04/23/17 at 20:01; Status DC Aspirin (Ecotrin) 81 mg DAILY PO Last administered on 04/25/17 09:09; Start at 09:00 Pantoprazole Sodium (Protonix) 40 mg DAILYAC PO Last administered on 04/25/17 09:09; Start 04/24/17 at 07:30 Acetaminophen/ Aspirin/Caffeine (Excedrin Migraine) 1 tab PRN Q6HRS PRN PO MIGRAINE HEADACHE Last administered on 04/24/17 09:28; Start 04/23/17 at 22:00 Acetaminophen (Tylenol) 650 mg PRN Q6HRS PRN PO HEADACHE; Start 04/23/17 at 22: 00 Multivitamins 10 ml/Thiamine HCl 100 mg/Folic Acid 1 mg/Sodium Chloride 1,011.2 ml @ 100 mls/ hr DAILY IV Last administered on 04/25/17 09:00; Start at 09:00; Stop 04/29/17 at 08:59 Chlordiazepoxide (Librium) 25 mg Q6H PO Last administered on 04/25/17 03:44; Start 04/23/17 at 22:30; Stop 04/25/17 at 04:31; Status DC Amoxicillin/ Clavulanate Potassium (Augmentin 875/ 125mg) 1 tab BID PO Last administered on 04/25/17 09:09; Start 04/24/17 at 09:00 Morphine Sulfate 1 mg PRN Q2HR PRN IV PAIN; Start 04/24/17 at 09:45 Ondansetron HCl (Zofran) 4 mg PRN Q6HRS PRN IV NAUSEA/VOMITING; Start 04/24/17 at 09:45 Acetaminophen/ Hydrocodone Bitart (Lortab 5/325) 1 tab PRN Q4HRS PRN PO PAIN Last administered on 04/25/17 08:32; Start 04/24/17 at 13:15 Influenza Virus Vaccine Quadrival (Fluarix Quad [id number] Syringe) 0.5 ml ONCE ONCE VAX IM Last administered on 04/24/17 16:49; Start 04/24/17 at 14:00; Stop 04/24/17 at 14:01; Status DC Cefazolin Sodium 1 gm/Sodium Chloride 50 ml @ 100 mls/hr 1X ONCE IV ; Start at 06:00; Stop 04/25/17 at 06:29; Status UNV Cefazolin Sodium 50 ml @ 100 mls/hr 1X ONCE IV ; Start 04/25/17 at 06:00; Stop 04/25/17 at 06:29; Status DC Midazolam HCl (Versed) 5 mg 1X ONCE IV ; Start 04/25/17 at 09:15; Stop at 09:16; Status DC Fentanyl Citrate (Fentanyl 5ml Vial) 150 mcg 1X ONCE IV ; Start 04/25/17 at 09: 15; Stop 04/25/17 at 09:16; Status DC Bacitracin 77214 unit/Sodium Chloride 250 ml @ 0 mls/hr 1X ONCE IRR ; Start at 09:15; Stop 04/25/17 at 09:16; Status DC Lidocaine/ Epinephrine (Xylocaine 2%-Epi 1:100,000) 20 ml 1X ONCE IJ ; Start at 09:15; Stop 04/25/17 at 09:16; Status DC Active Scripts Active Reported Amoxicillin 875 Mg Tablet 1 Tab PO BID Percocet 5-325 Mg Tablet (Oxycodone/Acetaminophen) 1 Each Tablet 1 Tab PO Q6HRS Aspir 81 (Aspirin) 81 Mg Tablet. 1 Tab PO DAILY Prilosec Otc (Omeprazole Magnesium) 20 Mg Tablet. 1 Tab PO DAILY Vitals/I & O Vital Sign - Last 24 Hours 04/24/17 04/24/17 04/24/17 04/24/17 10:58 14:39 15:22 15:47 Temp 98.2 98.2 98.2 98.2 Pulse 54 57 Resp 18 19 B/P (MAP) 111/66 (81) 140/81 (100) Pulse Ox 97 97 96 96 O2 Delivery Room Air Room Air Room Air Room Air O2 Flow Rate 2.0 2.0 04/24/17 04/24/17 04/24/17 04/25/17 19:20 20:00 23:00 02:49 Temp 98.1 97.8 97.8 98.1 97.8 97.8 Pulse 58 60 52 Resp 20 18 18 B/P (MAP) 124/69 (87) 124/67 (86) 108/69 (82) Pulse Ox 100 99 99 O2 Delivery Room Air Room Air 04/25/17 04/25/17 04/25/17 04/25/17 07:00 08:15 08:32 10:09 Temp 97.7 97.7 Pulse 49 Resp 18 B/P (MAP) 117/70 (86) Pulse Ox 100 100 O2 Delivery Room Air Room Air Room Air Room Air O2 Flow Rate 2.0 JARRETT SIBLYE MD Apr 25, 2017 10:32
[2017-04-25] MEDS ORDERED: NO ANTICOAGULANT THERAPY. MC PRN (13:45)
--- NOTE | 2017-04-25 14:06 | RAD ---
EXAM: Chest, single view. HISTORY: Pacemaker placement. COMPARISON: 04/23/2017. FINDINGS: A frontal view of the chest is obtained. There is a left cardiac pacemaker with leads overlying expected position. There is no pneumothorax. There is suspected left basilar atelectasis or scarring. There are are a few calcified granulomas. The heart is normal in size. IMPRESSION: Dual lead left cardiac pacemaker in expected position.
[2017-04-25] MEDS: NAPROXEN 500 MG TABLET PO PRN (17:10)
[2017-04-25] MEDS: MORPHINE SULFATE 4 MG/ML DISP.SYRIN. IV PRN (19:52)
[2017-04-25] MEDS: ONDANSETRON PF 4 MG/2 ML VIAL. IV PRN (19:53)
--- NOTE | 2017-04-25 19:58 | CARD ---
APPROVED REPORT Procedure(s) performed: MODERATE SEDATION: 60 MIN INSERTION OF A DUAL CHAMBER MRI COMPATIBLE [facility] PERMANENT PACER. HISTORY The patient is a 52 year-old male with a history of : hypertension, Pt has been having recurrent sync ope with bradycardia. INDICATION The indication(s) include : arrhythmia, syncope. PROCEDURE NARRATIVE AFTER OBTAINING INFORMED CONSENT THE PT WAS BROUGHT TO THE BENDING ROLL HAND. THE L SHOULDER AREA WAS PREPED AND DRAPED IN THE USUAL FASHION. AREA INFILTRATED WITH LIDO. SKIN INCISED AND A POCKET CREATED WITH BLUNT DISSECTION. A SHEATH WAS INSERTED IN THE SUBCLAVIAN VEIN WITH A 2 WIRE SELDINGER TECH. A LEAD WAS PLACED IN THE RV, NORMAL THRESHOLDS FOR SENSING AND PACING. A LEAD WAS PLACED IN THE RA, NORMAL THRESHOLDS FOR SENSING AND PACING. A [facility] MRI COMPATIBLE PACER GENERATOR WAS THEN CONNECTED TO THE LEADS AND ITS FUNCTION WAS FOUND TO BE NORMAL. POCKET IRRIGATED WITH ANTIBIOTIC SOLUTION. PACER PLACED IN POCKET AND THEN THE POCKET WAS CLOSED WITH 3 LAYERS OF RUNNING SUTURES. SKIN EDGES APROXIMATED WITH DERMABOND. PT TOLERATED THE PROCEDURE WELL. HE WAS TRANSFERED BACK TO HIS ROOM. Conclusion PT HAD THE PACER INSERTED AND IS IN STABLE CONDITION. IF STABLE MAY GO HOME IN AM.
[2017-04-26] MEDS: HYDROcodone/APAP 5/325MG 1 TAB TABLET PO PRN ×3 (02:50→14:34)
[2017-04-26 03:00] VITALS: BP 131/73
[2017-04-26] MEDS: ONDANSETRON PF 4 MG/2 ML VIAL. IV PRN (05:41)
[2017-04-26] MEDS: MORPHINE SULFATE 4 MG/ML DISP.SYRIN. IV PRN (06:20)
[2017-04-26 07:00] VITALS: BP 108/63
--- NOTE | 2017-04-26 08:07 | RAD ---
EXAM: Chest 2 views. HISTORY: Pacemaker placement. COMPARISON: 04/25/2017. FINDINGS: Frontal and lateral views of the chest are obtained. A left-sided pacemaker has its leads in the right atrium and right ventricle. The right costophrenic angle is excluded on the frontal projection. Blunting of the left costophrenic angle is most likely secondary to scarring. There is no pneumothorax or clear pleural effusion. There is a calcified granuloma in the right apex. There are no confluent infiltrates. Hyperinflation suggests chronic obstructive pulmonary disease. The heart is not enlarged. IMPRESSION: 1. Left 2-lead pacemaker in expected alignment. No pneumothorax. 2. Hyperinflation suggests chronic obstructive pulmonary disease.
[2017-04-26] MEDS: AMOXICILLIN/K CLAV 875/125MG TABLET. PO SCH (08:59)
[2017-04-26] MEDS: ASPIRIN ENTERIC COATED 81 MG TABLET.DR. PO SCH (08:59)
[2017-04-26] MEDS: MULTIVIT INFUSN,ADULT 4,VIT K 10 ML, THIAMINE 100 MG, FOLIC ACID 1 MG in IV NORMAL SALI... IV SCH (09:00)
[2017-04-26] MEDS: NAPROXEN 500 MG TABLET PO PRN (09:00)
[2017-04-26] MEDS: PANTOPRAZOLE 40 MG TABLET.DR. PO SCH (09:06)
--- NOTE | 2017-04-26 09:38 | PDOC3 ---
Discharge Summary Visit Information Date of Admission: Apr 25, 2017 Date of Discharge: Apr 26, 2017 Admitting Diagnosis Comment: 1. Syncope in the background of severe bradycardia s/p pacer implantation (04/25) 2. 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 recent fall Final Diagnosis Problems Medical Problems: (1) Syncope Status: Acute Brief Hospital Course Allergies Allergies Coded Allergies Type Severity Reaction Last Updated Verified No Known Drug Allergies 03/04/17 No Vital Signs Vital Signs Date Time Temp Pulse Resp B/P (MAP) Pulse Ox O2 Delivery O2 Flow Rate FiO2 04/26/17 08:59 17 99 Room Air 2.0 04/26/17 07:00 97.6 62 108/63 (78) 97.6 Brief Hospital Course Mr. Gilbert is a 52 old AA male, admitted for syncope. REadmission, Was advised pacer last admit bec of estuardo with syncope but left AMA. NOw agreed to it,. TOlerated well. PAcer mariana yang, Home today,. Requests PO narcs Seen and examined, Time 31 mins > 50% counselling Discharge Information Condition at Discharge: Improved, Stable Disposition/Orders: D/C to Home Scheduled Amoxicillin (Amoxicillin), 1 TAB PO BID, (Reported) Aspirin (Aspir 81), 1 TAB PO DAILY, (Reported) Omeprazole Magnesium (Prilosec Otc), 1 TAB PO DAILY, (Reported) Oxycodone/Apap 5-325 (Percocet 5-325 Mg Tablet), 1 TAB PO Q6HRS, (Reported) JARRETT SIBLEY MD Apr 26, 2017 09:38
[2017-04-26 11:00] VITALS: BP 115/61
== END 2017-04-26 14:55 | disposition home or self-care (01) | DRG 244 ==
LOC: ER 18:11 → 2 NORTH 21:00
PROVIDERS: ADMIT Internal Medicine Hematology & Oncology; ATTEND Internal Medicine Hematology & Oncology
PROC: 0JH606Z Insertion of Pacemaker, Dual Chamber into Chest Subcutaneous Tissue and Fascia, Open Approach (ICD-10-PCS; principal; 2017-04-25)
PROC: 02H63JZ Insertion of Pacemaker Lead into Right Atrium, Percutaneous Approach (ICD-10-PCS; 2017-04-25)
PROC: 02HK3JZ Insertion of Pacemaker Lead into Right Ventricle, Percutaneous Approach (ICD-10-PCS; 2017-04-25)
DX: R00.1 Bradycardia, unspecified (principal); D63.8 Anemia in other chronic diseases classified elsewhere; F43.10 Post-traumatic stress disorder, unspecified; F12.90 Cannabis use, unspecified, uncomplicated; F10.20 Alcohol dependence, uncomplicated; Y90.8 Blood alcohol level of 240 mg/100 ml or more; Z79.82 Long term (current) use of aspirin; Z23 Encounter for immunization; J32.9 Chronic sinusitis, unspecified
CPT/HCPCS: 33208; 36415; 71010; 71020; 80053; 80307; 82550; 83880; 84443; 84484; 85025; 90686; 93005; 99152; 99153; C1785; C1898; G0480; J0690; J2250; J2270; J2405; J3010; J3490; J7030; J7050; 99285-25; G0479

== ENCOUNTER 2017-04-27 13:58 | Emergency (ER) | payer SELFPAY ==
[~2017-04-27] VITALS: Ht 177.8 cm; Wt 65.8 kg
--- NOTE | 2017-04-27 14:07 | PHYS DOC ---
Past Medical History Past Medical History: Depression, Other Additional Past Medical Histor: PTSD, BRADYCARDIA Past Surgical History: Other Additional Past Surgical Histo: R thumb Alcohol Use: Heavy Drug Use: Marijuana Adult General Chief Complaint Chief Complaint: CHEST PAIN HPI HPI Patient is a 52 year old male who presents with single episode and chest pain at work. He got a pacemaker put in recently by Dr. Valdovinos and then today he went back to work he drank about 6 beers which usually drinks every day and he started having left-sided chest pain that radiated down his left side. He states the next thing he knew his boss called 911 because he passed out. Currently he still has constant pain in his left chest where the pacemaker was placed, he states nothing makes it better or worse. He has felt nauseated without any vomiting. He denies any shortness of breath. Review of Systems Review of Systems Constitutional: Denies fever or chills [] Eyes: Denies change in visual acuity, redness, or eye pain [] HENT: Denies nasal congestion or sore throat [] Respiratory: Denies cough or shortness of breath [] Cardiovascular: No additional information not addressed in HPI [] GI: Denies abdominal pain, nausea, vomiting, bloody stools or diarrhea [] : Denies dysuria or hematuria [] Musculoskeletal: Denies back pain or joint pain [] Integument: Denies rash or skin lesions [] Neurologic: Denies headache, focal weakness or sensory changes [] Endocrine: Denies polyuria or polydipsia [] Current Medications Current Medications Current Medications Medications (Trade) Dose Ordered Sig/Rose Mary Start Time Stop Time Status Last Admin Dose Admin Sodium Chloride 1,000 ml @ 1,000 mls/hr 1X ONCE 04/27/17 16:30 04/27/17 17:29 04/27/17 16:38 1,000 MLS/HR Allergies Allergies Allergies Coded Allergies Type Severity Reaction Last Updated Verified No Known Drug Allergies 03/04/17 No Physical Exam Physical Exam Constitutional: Well developed, well nourished, no acute distress, non-toxic appearance. [] HENT: Normocephalic, atraumatic, bilateral external ears normal, oropharynx moist, no oral exudates, nose normal. [] Eyes: PERRLA, EOMI, conjunctiva normal, no discharge. [] Neck: Normal range of motion, no tenderness, supple, no stridor. [] Cardiovascular:Heart rate regular rhythm, no murmur [] Lungs & Thorax: Bilateral breath sounds clear to auscultation pacemaker with well-healed incision over the left hemithorax with tenderness to palpation around the pacemaker, no erythema appreciated Abdomen: Bowel sounds normal, soft, no tenderness, no masses, no pulsatile masses. [] Skin: Warm, dry, no erythema, no rash. [] Back: No tenderness, no CVA tenderness. [] Extremities: No tenderness, no cyanosis, no clubbing, ROM intact, no edema. [] Neurologic: Alert and oriented X 3, normal motor function, normal sensory function, no focal deficits noted. [] Psychologic: Affect normal, judgement normal, mood normal. [] Current Patient Data Vital Signs Vital Signs Date Time Temp Pulse Resp B/P (MAP) Pulse Ox O2 Delivery O2 Flow Rate FiO2 04/27/17 16:38 60 16 88/50 (63) 100 Room Air 04/27/17 13:58 97.8 97.8 Lab Values Laboratory Tests Test 04/27/17 14:00 04/27/17 15:00 White Blood Count 5.5 x10^3/uL (4.0-11.0) Red Blood Count 3.25 x10^6/uL (4.30-5.70) L Hemoglobin 11.1 g/dL (13.0-17.5) L Hematocrit 33.8 % (39.0-53.0) L Mean Corpuscular Volume 104 fL (79-100) H Mean Corpuscular Hemoglobin 34 pg (25-35) Mean Corpuscular Hemoglobin Concent 33 g/dL (31-37) Red Cell Distribution Width 13.4 % (11.5-14.5) Platelet Count 90 x10^3/uL (140-400) L Neutrophils (%) (Auto) 69 % (31-73) Lymphocytes (%) (Auto) 16 % (24-48) L Monocytes (%) (Auto) 6 % (0-9) Eosinophils (%) (Auto) 8 % (0-3) H Basophils (%) (Auto) 1 % (0-3) Neutrophils # (Auto) 3.8 x10^3uL (1.8-7.7) Lymphocytes # (Auto) 0.9 x10^3/uL (1.0-4.8) L Monocytes # (Auto) 0.3 x10^3/uL (0.0-1.1) Eosinophils # (Auto) 0.4 x10^3/uL (0.0-0.7) Basophils # (Auto) 0.0 x10^3/uL (0.0-0.2) Prothrombin Time 11.2 SEC (11.7-14.0) L Prothrombin Time INR 0.9 (0.8-1.1) Sodium Level 140 mmol/L (136-145) Potassium Level 4.5 mmol/L (3.5-5.1) Chloride Level 102 mmol/L (98-107) Carbon Dioxide Level 30 mmol/L (21-32) Anion Gap 8 (6-14) Blood Urea Nitrogen 11 mg/dL (8-26) Creatinine 1.1 mg/dL (0.7-1.3) Estimated GFR (Cockcroft-Gault) 69.8 Glucose Level 97 mg/dL (70-99) Calcium Level 8.8 mg/dL (8.5-10.1) Creatine Kinase 517 U/L (39-308) H Creatine Kinase MB (Mass) 2.6 ng/mL (0.0-3.6) Creatine Kinase MB Relative Index 0.5 % (0-4) Troponin I Quantitative < 0.017 ng/mL (0.000-0.055) PW-Jif-B-Type Natriuretic Peptide 241 pg/mL (0-124) H Ethyl Alcohol Level 262 mg/dL (0-10) H Urine Opiates Screen Pos (NEG) Urine Methadone Screen Neg (NEG) Urine Barbiturates Neg (NEG) Urine Phencyclidine Screen Neg (NEG) Urine Amphetamine/Methamphetamine Neg (NEG) Urine Benzodiazepines Screen Pos (NEG) Urine Cocaine Screen Neg (NEG) Urine Cannabinoids Screen Pos (NEG) Urine Ethyl Alcohol Pos (NEG) Laboratory Tests 04/27/17 14:00 Laboratory Tests 04/27/17 14:00 EKG EKG EKG shows sinus rhythm [address] elevations or T-wave inversions, normal axis, QTC 396 ms, as interpreted by me. Radiology/Procedures Radiology/Procedures [facility] [address] [place] [address] IMAGING REPORT Signed PATIENT: LETICIA NO ACCOUNT: [id number] : 1965 LOCATION: ER AGE: 52 SEX: M EXAM STATUS: PRE ER ORD. PHYSICIAN: JAVIER HICKEY MD REASON: chest pain, passed out at work today, pacemaker recently inserted PROCEDURE: CHEST PA & LATERAL EXAM: CHEST 2 VIEWS History: History of passed out, recent pacer placement COMPARISON: 04/18/2017 TECHNIQUE: PA and lateral chest radiographs FINDINGS: Mild hyperinflated lungs likely changes of COPD. Left-sided cardiac pacer is unchanged. There is no acute infiltrate or visualize pneumothorax. IMPRESSION: No radiographic evidence of an acute cardiopulmonary abnormality. DICTATED and SIGNED BY: IRASEMA NICHOLAS MD DATE: 04/27/17 1441 CC: JAVIER HICKEY MD; NO PCP ~ Impressions: Chest wall pain Alchol abuse Course & Med Decision Making Course & Med Decision Making Pertinent Labs and Imaging studies reviewed. (See chart for details) EKG doesn't show any acute abnormality's. Spoke with Dr. Valdovinos who is in the ER department and discussed the patient's physical exam, history with him he was okay with the patient being discharged home. He states he stopped using his left arm and to his pacemaker site feels as previously instructed. Return precautions given. She being discharged in stable condition at this time. Dragon Disclaimer Dragon Disclaimer This electronic medical record was generated, in whole or in part, using a voice recognition dictation system. Departure Departure Impression: Primary Impression: Chest wall pain Disposition: ADMITTED INPATIENT Condition: STABLE Referrals: NO PCP (PCP) Patient Instructions: Chest Wall Pain Additional Instructions: Your EKG and lab work did not show any acute abnormalities in addition to the chest x-ray. You were intoxicated, and this likely lead to your passing out event. You watch in the ER for several hours and given IV fluids. Your being discharged home. Please follow-up with Dr. Valdovinos as previously scheduled. Return back to ER if your pain gets worse, you have troubles breathing, or you have any other concerns. JAVIER HICKEY MD Apr 27, 2017 14:07
--- NOTE | 2017-04-27 14:24 | EKG ---
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
[2017-04-27 14:28] LABS: BASO % 1 % (0-3); EOS % 8 % (0-3); HEMATOCRIT 33.8 % (39.0-53.0); HEMOGLOBIN 11.1 g/dL (13.0-17.5); LYMPH # 0.9 x10^3/uL (1.0-4.8); LYMPH % 16 % (24-48); MEAN CORPUSCULAR HEMOGLOBIN 34 pg (25-35); MEAN CORPUSCULAR HGB CONC 33 g/dL (31-37); MEAN CORPUSCULAR VOLUME 104 fL (79-100); MONO % 6 % (0-9); NEUT % 69 % (31-73); PLATELET COUNT 90 x10^3/uL (140-400); RED BLOOD COUNT 3.25 x10^6/uL (4.30-5.70); RED CELL DISTRIBUTION WIDTH 13.4 % (11.5-14.5); WHITE BLOOD COUNT 5.5 x10^3/uL (4.0-11.0)
[2017-04-27 14:38] LABS: INR 0.9 (0.8-1.1); PROTHROMBIN TIME PATIENT 11.2 SEC (11.7-14.0)
--- NOTE | 2017-04-27 14:44 | RAD ---
EXAM: CHEST 2 VIEWS History: History of passed out, recent pacer placement COMPARISON: 04/18/2017 TECHNIQUE: PA and lateral chest radiographs FINDINGS: Mild hyperinflated lungs likely changes of COPD. Left-sided cardiac pacer is unchanged. There is no acute infiltrate or visualize pneumothorax. IMPRESSION: No radiographic evidence of an acute cardiopulmonary abnormality.
[2017-04-27 14:47] LABS: CALCIUM 8.8 mg/dL (8.5-10.1); CREATININE 1.1 mg/dL (0.7-1.3); GFR 69.8; POTASSIUM 4.5 mmol/L (3.5-5.1)
[2017-04-27 15:01] LABS: CKMB MASS 2.6 ng/mL (0.0-3.6)
[2017-04-27 15:33] LABS: BARBITURATES NEG (NEG); BENZODIAZEPINES POS (NEG); CANNABINOIDS POS (NEG); COCAINE NEG (NEG); METHADONE NEG (NEG); OPIATES POS (NEG); PHENCYCLIDINE NEG (NEG)
[2017-04-27] MEDS ORDERED: IV NORMAL SALINE 1000ML BAG 1,000 ML IV ONE (16:30)
[2017-04-27 17:49] VITALS: BP 92/53
== END 2017-04-27 18:35 | disposition home or self-care (01) ==
LOC: ER 13:58
DX: R07.81 Pleurodynia (principal); F43.10 Post-traumatic stress disorder, unspecified; F10.20 Alcohol dependence, uncomplicated; F12.10 Cannabis abuse, uncomplicated; Z95.0 Presence of cardiac pacemaker; Z79.899 Other long term (current) drug therapy
CPT/HCPCS: 36415; 71020; 80048; 80307; 82553; 83880; 84484; 85025; 85610; 93005; 96360; 99285; G0480; J7030; G0479

== ENCOUNTER → 2017-12-05 | Outpatient (CLI) | payer OTHER | END | disposition home or self-care (01) | LOC: RAD 10:57 | DX: M79.642 Pain in left hand (principal); M79.641 Pain in right hand | CPT/HCPCS: 73130 ==

== ENCOUNTER 2018-04-27 12:15 | Emergency (ER) | payer OTHER ==
[~2018-04-27] VITALS: Ht 177.8 cm; Wt 54.0 kg
[2018-04-27 12:15] VITALS: BP 109/70
--- NOTE | 2018-04-27 13:33 | PHYS DOC ---
Past Medical History Past Medical History: Anxiety, Arrhythmia, Depression, GERD, Pancreatitis, Other Additional Past Medical Histor: PACEMAKER/DEFIB Past Surgical History: Pacemaker, Other Additional Past Surgical Histo: RIGHT THUMB LIGAMENTS,LEFT EYE SOCKET RECONSTRUCTION Alcohol Use: Heavy Drug Use: Marijuana Adult General Chief Complaint Chief Complaint: AICD FIRED OR SHOCKED HPI HPI Patient is a 53 year old male who presents with complaint of syncope earlier this morning. Patient states she just finished a 20 [address] ride from [facility] here. Patient states he arrived last night and currently is under the influence of marijuana and alcohol. Patient states his last drink was this morning and was supple beers. Patient states she's having rib pain and is not sure if he has broken ribs. Patient also wonders if the syncope was from a missed firing of his AICD fibrillator. Patient states it was placed approximately [address] Morgan because he was having syncopal episodes with a low heart rate in the 30s. Patient is requesting narcotic medication at this time for his chest wall pain and states he has PTSD and is normally on antianxiety medicine. Review of Systems Review of Systems Constitutional: Denies fever or chills [] Eyes: Denies change in visual acuity, redness, or eye pain [] HENT: Denies nasal congestion or sore throat [] Respiratory: Denies cough or shortness of breath [] Cardiovascular: No additional information not addressed in HPI [] GI: Denies abdominal pain, nausea, vomiting, bloody stools or diarrhea [] : Denies dysuria or hematuria [] Musculoskeletal: Denies back pain or joint pain [] Integument: Denies rash or skin lesions [] Neurologic: Denies headache, focal weakness or sensory changes [] Endocrine: Denies polyuria or polydipsia [] All other systems were reviewed and found to be within normal limits, except as documented in this note. Current Medications Current Medications Current Medications Medications (Trade) Dose Ordered Sig/Rose Mary Start Time Stop Time Status Last Admin Dose Admin Info (CONTRAST GIVEN -- Rx MONITORING) 1 each PRN DAILY PRN 04/27/18 15:15 04/29/18 15:14 Iohexol (Omnipaque 300 Mg/ml) 75 ml 1X ONCE 04/27/18 15:00 04/27/18 15:01 DC Allergies Allergies Allergies Coded Allergies Type Severity Reaction Last Updated Verified No Known Drug Allergies 03/04/17 No Physical Exam Physical Exam Constitutional: Well developed, well nourished, no acute distress, non-toxic appearance. [] HENT: Normocephalic, atraumatic, bilateral external ears normal, oropharynx moist, no oral exudates, nose normal. [] Eyes: PERRLA, EOMI, conjunctiva normal, no discharge. [] Neck: Normal range of motion, no tenderness, supple, no stridor. [] Cardiovascular:Heart rate regular rhythm, no murmur [] Lungs & Thorax: Bilateral breath sounds clear to auscultation [] Abdomen: Bowel sounds normal, soft, no tenderness, no masses, no pulsatile masses. [] Skin: Warm, dry, no erythema, no rash. [] Back: No tenderness, no CVA tenderness. [] Extremities: No tenderness, no cyanosis, no clubbing, ROM intact, no edema. [] Neurologic: Alert and oriented X 3, normal motor function, normal sensory function, no focal deficits noted. [] Psychologic: Affect normal, judgement normal, mood normal. [] Current Patient Data Vital Signs Vital Signs Date Time Temp Pulse Resp B/P (MAP) Pulse Ox O2 Delivery O2 Flow Rate FiO2 04/27/18 12:15 98.6 72 25 109/70 (83) 97 Room Air 98.6 Lab Values Laboratory Tests Test 04/27/18 13:35 04/27/18 13:50 White Blood Count 5.5 x10^3/uL (4.0-11.0) Red Blood Count 3.08 x10^6/uL (4.30-5.70) L Hemoglobin 10.4 g/dL (13.0-17.5) L Hematocrit 30.8 % (39.0-53.0) L Mean Corpuscular Volume 100 fL (79-100) Mean Corpuscular Hemoglobin 34 pg (25-35) Mean Corpuscular Hemoglobin Concent 34 g/dL (31-37) Red Cell Distribution Width 13.5 % (11.5-14.5) Platelet Count 224 x10^3/uL (140-400) Neutrophils (%) (Auto) 65 % (31-73) Lymphocytes (%) (Auto) 26 % (24-48) Monocytes (%) (Auto) 5 % (0-9) Eosinophils (%) (Auto) 3 % (0-3) Basophils (%) (Auto) 1 % (0-3) Neutrophils # (Auto) 3.6 x10^3uL (1.8-7.7) Lymphocytes # (Auto) 1.4 x10^3/uL (1.0-4.8) Monocytes # (Auto) 0.3 x10^3/uL (0.0-1.1) Eosinophils # (Auto) 0.2 x10^3/uL (0.0-0.7) Basophils # (Auto) 0.1 x10^3/uL (0.0-0.2) Sodium Level 140 mmol/L (136-145) Potassium Level 3.7 mmol/L (3.5-5.1) Chloride Level 102 mmol/L (98-107) Carbon Dioxide Level 26 mmol/L (21-32) Anion Gap 12 (6-14) Blood Urea Nitrogen 6 mg/dL (8-26) L Creatinine 1.1 mg/dL (0.7-1.3) Estimated GFR (Cockcroft-Gault) 69.5 BUN/Creatinine Ratio 5 (6-20) L Glucose Level 92 mg/dL (70-99) Calcium Level 9.8 mg/dL (8.5-10.1) Total Bilirubin 0.4 mg/dL (0.2-1.0) Aspartate Amino Transferase (AST) 39 U/L (15-37) H Alanine Aminotransferase (ALT) 35 U/L (16-63) Alkaline Phosphatase 107 U/L (46-116) Troponin I Quantitative < 0.017 ng/mL (0.000-0.055) Total Protein 7.5 g/dL (6.4-8.2) Albumin 3.9 g/dL (3.4-5.0) Albumin/Globulin Ratio 1.1 (1.0-1.7) Amylase Level 81 U/L (25-115) Lipase 36 U/L (73-393) L Ethyl Alcohol Level 263 mg/dL (0-10) H Urine Collection Type Unknown Urine Color Yellow Urine Clarity Clear Urine pH 5.0 Urine Specific [place] 1.010 Urine Protein Negative mg/dL (NEG-TRACE) Urine Glucose (UA) Negative mg/dL (NEG) Urine Ketones (Stick) Negative mg/dL (NEG) Urine Blood Negative (NEG) Urine Nitrite Negative (NEG) Urine Bilirubin Negative (NEG) Urine Urobilinogen Dipstick 0.2 mg/dL (0.2 mg/dL) Urine Leukocyte Esterase Negative (NEG) Urine RBC 0 /HPF (0-2) Urine WBC 0 /HPF (0-4) Urine Squamous Epithelial Cells Few /LPF Urine Bacteria 0 /HPF (0-FEW) Urine Mucus Slight /LPF Urine Opiates Screen Neg (NEG) Urine Methadone Screen Neg (NEG) Urine Barbiturates Neg (NEG) Urine Phencyclidine Screen Neg (NEG) Urine Amphetamine/Methamphetamine Neg (NEG) Urine Benzodiazepines Screen Neg (NEG) Urine Cocaine Screen Neg (NEG) Urine Cannabinoids Screen Pos (NEG) Urine Ethyl Alcohol Pos (NEG) Laboratory Tests 04/27/18 13:35 Laboratory Tests 04/27/18 13:35 EKG EKG A. fib at a rate of 60[] Radiology/Procedures Radiology/Procedures [][address] [address] IMAGING REPORT Signed PATIENT: MARY NOJAKE Keith ACCOUNT: [id number] : 1965 LOCATION: ER AGE: 53 SEX: M EXAM STATUS: REG ER ORD. PHYSICIAN: EPIFANIO LOCKHART MD REASON: syncopy, rib pain PROCEDURE: CHEST PA & LATERAL Examination: 2 views of chest HISTORY: History of syncope, fall COMPARISON: 04/27/2017 FINDINGS: The cardiomediastinal silhouette grossly appears unremarkable. Left-sided cardiac pacer is identified. Mild hyperinflated lungs likely changes of COPD. There is no acute infiltrate or visualized pneumothorax identified. IMPRESSION: No acute cardiopulmonary findings Electronically signed by: Haroldo Hannah MD (04/27/2018 2:01 PM) [facility] DICTATED and SIGNED BY: HAROLDO HANNAH MD DATE: 04/27/[address] [id number] IMAGING REPORT Signed PATIENT: LETICIA NO ACCOUNT: [id number] : 1965 LOCATION: ER AGE: 53 SEX: M EXAM STATUS: REG ER ORD. PHYSICIAN: EPIFANIO LOCKHART MD REASON: fall, alcohol intoxication PROCEDURE: CT HEAD AND CERVICAL SPINE WO CT scan of the head without contrast 04/27/2018 Clinical History: Fall with head injury. Technique: Unenhanced, contiguous, 5 mm axial sections were obtained through the head. One or more of the following individualized dose reduction techniques were utilized for this study: 1. Automated exposure control. 2. Adjustment of the mA and/or kV according to patient size. 3. Use of iterative reconstruction technique. Findings: Comparison study is dated 03/04/2017. There is generalized parenchymal atrophy. Areas of decreased attenuation are seen within the periventricular and subcortical white matter of both cerebral hemispheres consistent with areas of small vessel ischemic disease. No acute parenchymal abnormality is seen. No extra-axial fluid collection is noted. No skull fracture is seen. Moderate mucosal thickening is seen involving the right maxillary sinus. Impression: No acute intracranial abnormality is seen. CT scan of the cervical spine without contrast 04/27/2018 Clinical history: Neck pain post fall. Technique: Unenhanced, contiguous, 0.625 mm axial sections were obtained through the cervical spine. Axial, coronal and sagittal reconstructed images were obtained. One or more of the following individualized dose reduction techniques were utilized for this study: 1. Automated exposure control. 2. Adjustment of the mA and/or kV according to patient size. 3. Use of iterative reconstruction technique. Findings: Sagittal and coronal reconstructed images demonstrate mild straightening of the normal cervical lordosis. No fracture or subluxation cervical vertebrae seen. Degenerative changes are seen involving the uncovertebral and facet joints throughout the cervical disc spaces. Impression: No fracture or subluxation of the cervical vertebra is identified. Electronically signed by: Roberto Garsia MD (04/27/2018 4:02 PM) [facility] [place] DICTATED and SIGNED BY: ROBERTO GARSIA MD DATE: 04/27/18 1557 [facility] [address] [place], [place] [id number] IMAGING REPORT Signed PATIENT: LETICIA NO ACCOUNT: [id number] : 1965 LOCATION: ER AGE: 53 SEX: M EXAM STATUS: REG ER ORD. PHYSICIAN: EPIFANIO LOCKHART MD REASON: fall, alcohol intoxication PROCEDURE: CT ANGIOGRAPHY CHEST Examination: CT angiography chest HISTORY: History of fall, chest pain COMPARISON: 05/19/2017 TECHNIQUE: Axial CT angiography images of chest were performed with IV contrast. Coronal and sagittal 3-D MIP reformats are performed Exposure: One or more of the following individualized dose reduction techniques were utilized for this examination: 1. Automated exposure control 2. Adjustment of the mA and/or kV according to patient size 3. Use of iterative reconstruction technique FINDINGS: Limited examination as patient jumped off table during scan, the top portion of the chest was rescanned again. The central airways are patent. The heart size grossly appears unremarkable. No evidence of pericardial effusion. The caliber of the aorta grossly appears unremarkable. No evidence of filling defect identified in the main pulmonary arterial trunk and right and left main pulmonary arteries and the visualized lobar, segmental branches of the pulmonary arteries. The lungs are clear. The visualized liver, spleen, adrenals grossly appears unremarkable. Mild degenerative changes thoracic spine. Left-sided cardiac pacer is identified. IMPRESSION: 1. No evidence of pulmonary embolism. 2. The lungs are clear. Electronically signed by: Haroldo Hannah MD (04/27/2018 4:06 PM) [facility] DICTATED and SIGNED BY: HAROLDO HANNAH MD DATE: 04/27/18 1559 Course & Med Decision Making Course & Med Decision Making Pertinent Labs and Imaging studies reviewed. (See chart for details) []A she did request to leave AMA. Patient had a blood alcohol that was drawn at 1335 with a level of 263 is also positive for marijuana area patient is alert and oriented 4 this [place] make a decision to leave AMA per my evaluation. Patient is aware that the initial [employer] transmission was not received as we have called [facility] and verified this and we are currently repeating the process. Patient refuses to wait and is aware that he risks and is aware that he risks her inability to find out those problem with his defibrillator. She has also aware that we are able to call a glass technician to come out and actually evaluate the device and he declines the option of waiting for that. Dragon Disclaimer Dragon Disclaimer This electronic medical record was generated, in whole or in part, using a voice recognition dictation system. Departure Departure Impression: Primary Impression: Alcohol intoxication Additional Impressions: Syncope Chest wall pain Marijuana use Disposition: 07 AGAINST MEDICAL ADVICE Condition: STABLE Referrals: DARRIN OSPINA MD (PCP) Additional Instructions: Please follow up on Sunday with your primary care and/or Dr. Morgan for further evaluation and management of your condition. Return to the emergency department at any time if her symptoms become worse or if they have any concerns. Scripts No Active Prescriptions or Reported Meds Problem Qualifiers EPIFANIO LOCKHART MD Apr 27, 2018 13:33
[2018-04-27 13:51] LABS: BASO # 0.1 x10^3/uL (0.0-0.2); BASO % 1 % (0-3); EOS # 0.2 x10^3/uL (0.0-0.7); EOS % 3 % (0-3); HEMATOCRIT 30.8 % (39.0-53.0); HEMOGLOBIN 10.4 g/dL (13.0-17.5); LYMPH # 1.4 x10^3/uL (1.0-4.8); LYMPH % 26 % (24-48); MEAN CORPUSCULAR HEMOGLOBIN 34 pg (25-35); MEAN CORPUSCULAR HGB CONC 34 g/dL (31-37); MEAN CORPUSCULAR VOLUME 100 fL (79-100); MONO # 0.3 x10^3/uL (0.0-1.1); MONO % 5 % (0-9); NEUT # 3.6 x10^3uL (1.8-7.7); NEUT % 65 % (31-73); PLATELET COUNT 224 x10^3/uL (140-400); RED BLOOD COUNT 3.08 x10^6/uL (4.30-5.70); RED CELL DISTRIBUTION WIDTH 13.5 % (11.5-14.5); WHITE BLOOD COUNT 5.5 x10^3/uL (4.0-11.0)
[2018-04-27 14:04] LABS: BILIRUBIN,URINE NEGATIVE (NEG); CLARITY,URINE CLEAR; COLOR,URINE YELLOW; NITRITE,URINE NEGATIVE (NEG); PROTEIN,URINE NEGATIVE (NEG-TRACE); UROBILINOGEN,URINE 0.2 mg/dL (0.2 mg/dL)
--- NOTE | 2018-04-27 14:05 | RAD ---
Examination: 2 views of chest HISTORY: History of syncope, fall COMPARISON: 04/27/2017 FINDINGS: The cardiomediastinal silhouette grossly appears unremarkable. Left-sided cardiac pacer is identified. Mild hyperinflated lungs likely changes of COPD. There is no acute infiltrate or visualized pneumothorax identified. IMPRESSION: No acute cardiopulmonary findings Electronically signed by: Haroldo Hannah MD (04/27/2018 2:01 PM) [facility]
[2018-04-27 14:08] LABS: AMYLASE 81 U/L (25-115); LIPASE 36 U/L (73-393)
[2018-04-27 14:11] LABS: BARBITURATES NEG (NEG); BENZODIAZEPINES NEG (NEG); CANNABINOIDS POS (NEG); COCAINE NEG (NEG); METHADONE NEG (NEG); OPIATES NEG (NEG); PHENCYCLIDINE NEG (NEG)
[2018-04-27 14:11] LABS: CALCIUM 9.8 mg/dL (8.5-10.1); CREATININE 1.1 mg/dL (0.7-1.3); GFR 69.5; POTASSIUM 3.7 mmol/L (3.5-5.1)
[2018-04-27 14:12] LABS: AMPHETAMINE/METHAMPHETAMINE NEG (NEG)
[2018-04-27 14:16] LABS: BACTERIA,URINE 0 /HPF (0-FEW); RBC,URINE 0 /HPF (0-2); SQUAMOUS EPITHELIAL CELL,UR FEW /LPF; WBC,URINE 0 /HPF (0-4)
[2018-04-27 14:17] LABS: ALBUMIN 3.9 g/dL (3.4-5.0); ALBUMIN/GLOBULIN RATIO 1.1 (1.0-1.7); TOTAL BILIRUBIN 0.4 mg/dL (0.2-1.0); TOTAL PROTEIN 7.5 g/dL (6.4-8.2)
[2018-04-27] MEDS ORDERED: IOHEXOL 300 MG/ML 100ML VIAL. IV ONE (15:00)
--- NOTE | 2018-04-27 15:05 | EKG ---
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
[2018-04-27] MEDS ORDERED: CONTRAST GIVEN. MC PRN (15:15)
--- NOTE | 2018-04-27 16:05 | RAD ---
CT scan of the head without contrast 04/27/2018 Clinical History: Fall with head injury. Technique: Unenhanced, contiguous, 5 mm axial sections were obtained through the head. One or more of the following individualized dose reduction techniques were utilized for this study: 1. Automated exposure control. 2. Adjustment of the mA and/or kV according to patient size. 3. Use of iterative reconstruction technique. Findings: Comparison study is dated 03/04/2017. There is generalized parenchymal atrophy. Areas of decreased attenuation are seen within the periventricular and subcortical white matter of both cerebral hemispheres consistent with areas of small vessel ischemic disease. No acute parenchymal abnormality is seen. No extra-axial fluid collection is noted. No skull fracture is seen. Moderate mucosal thickening is seen involving the right maxillary sinus. Impression: No acute intracranial abnormality is seen. CT scan of the cervical spine without contrast 04/27/2018 Clinical history: Neck pain post fall. Technique: Unenhanced, contiguous, 0.625 mm axial sections were obtained through the cervical spine. Axial, coronal and sagittal reconstructed images were obtained. One or more of the following individualized dose reduction techniques were utilized for this study: 1. Automated exposure control. 2. Adjustment of the mA and/or kV according to patient size. 3. Use of iterative reconstruction technique. Findings: Sagittal and coronal reconstructed images demonstrate mild straightening of the normal cervical lordosis. No fracture or subluxation cervical vertebrae seen. Degenerative changes are seen involving the uncovertebral and facet joints throughout the cervical disc spaces. Impression: No fracture or subluxation of the cervical vertebra is identified. Electronically signed by: Roberto Garsia MD (04/27/2018 4:02 PM) [facility] [place]
--- NOTE | 2018-04-27 16:10 | RAD ---
Examination: CT angiography chest HISTORY: History of fall, chest pain COMPARISON: 05/19/2017 TECHNIQUE: Axial CT angiography images of chest were performed with IV contrast. Coronal and sagittal 3-D MIP reformats are performed Exposure: One or more of the following individualized dose reduction techniques were utilized for this examination: 1. Automated exposure control 2. Adjustment of the mA and/or kV according to patient size 3. Use of iterative reconstruction technique FINDINGS: Limited examination as patient jumped off table during scan, the top portion of the chest was rescanned again. The central airways are patent. The heart size grossly appears unremarkable. No evidence of pericardial effusion. The caliber of the aorta grossly appears unremarkable. No evidence of filling defect identified in the main pulmonary arterial trunk and right and left main pulmonary arteries and the visualized lobar, segmental branches of the pulmonary arteries. The lungs are clear. The visualized liver, spleen, adrenals grossly appears unremarkable. Mild degenerative changes thoracic spine. Left-sided cardiac pacer is identified. IMPRESSION: 1. No evidence of pulmonary embolism. 2. The lungs are clear. Electronically signed by: Haroldo Hannah MD (04/27/2018 4:06 PM) [facility]
== END 2018-04-27 17:03 | disposition left against medical advice (07) ==
LOC: ER 12:15
DX: R55 Syncope and collapse (principal); R07.89 Other chest pain; F10.129 Alcohol abuse with intoxication, unspecified; Y90.8 Blood alcohol level of 240 mg/100 ml or more; F12.10 Cannabis abuse, uncomplicated; K21.9 Gastro-esophageal reflux disease without esophagitis; F41.9 Anxiety disorder, unspecified; F32.9 Major depressive disorder, single episode, unspecified; Z95.810 Presence of automatic (implantable) cardiac defibrillator
CPT/HCPCS: 36415; 70450; 71046; 71275; 72125; 80053; 80307; 81001; 82150; 83690; 84484; 85025; 93005; 99285; G0480; G0479

== ENCOUNTER → 2018-05-21 | Outpatient (CLI) | payer OTHER ==
[2018-04-27 12:15] VITALS: BP 109/70
[~2018-05-21] MED LIST changes: +CONTRAST GIVEN. MC PRN; +IOHEXOL 240 MG/ML 50ML VIAL. PO ONE; +IOHEXOL 300 MG/ML 100ML VIAL. IV ONE
--- NOTE | 2018-05-21 16:12 | RAD ---
CT of the abdomen and pelvis with contrast, 05/21/2018: HISTORY: Weight loss, abdominal pain Multidetector CT imaging was performed following oral and IV administration of contrast. No hepatic abnormality is seen. No dense gallstones are seen. The pancreas is atrophic with multiple pancreatic calcifications evident. The spleen is of normal size. There is mild bilateral renal cortical scarring. The kidneys show no evidence of obstruction. The abdominal aorta is unremarkable. No abdominal or pelvic adenopathy is seen. The bowel loops are not dilated. The appendix is not visualized. No free air or free fluid is evident in the abdomen or pelvis. Moderate degenerative change is present in the lower lumbar spine. There is a mild chronic appearing superior endplate deformity at L3. IMPRESSION: 1. Chronic calcific pancreatitis. 2. No acute abdominal or pelvic abnormality is detected. PQRS Compliance Statement: One or more of the following individualized dose reduction techniques were utilized for this examination: 1. Automated exposure control 2. Adjustment of the mA and/or kV according to patient size 3. Use of iterative reconstruction technique Electronically signed by: Kin Montoya MD (05/21/2018 4:09 PM) [facility]
== END | disposition home or self-care (01) ==
LOC: CT 09:12
PROVIDERS: ATTEND Family Medicine
DX: K85.90 Acute pancreatitis without necrosis or infection, unspecified (principal); D64.89 Other specified anemias; Z95.0 Presence of cardiac pacemaker
CPT/HCPCS: 74177; Q9966; Q9967

== ENCOUNTER 2018-06-27 14:35 | Emergency (ER) | payer OTHER ==
[~2018-06-27] VITALS: Ht 167.6 cm; Wt 54.0 kg
[~2018-06-27 14:35] MED LIST changes: -CONTRAST GIVEN. MC PRN; -IOHEXOL 240 MG/ML 50ML VIAL. PO ONE; -IOHEXOL 300 MG/ML 100ML VIAL. IV ONE; -OXYC-323 PO; +OXYC1TAB15 PO
[2018-06-27] MEDS ORDERED: ASPIRIN 325 MG TABLET PO ONE (15:45)
--- NOTE | 2018-06-27 16:00 | EKG ---
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
[2018-06-27 16:18] LABS: BASO % 1 % (0-3); EOS # 0.2 x10^3/uL (0.0-0.7); EOS % 3 % (0-3); HEMATOCRIT 26.6 % (39.0-53.0); LYMPH # 1.2 x10^3/uL (1.0-4.8); LYMPH % 21 % (24-48); MEAN CORPUSCULAR HEMOGLOBIN 35 pg (25-35); MEAN CORPUSCULAR HGB CONC 34 g/dL (31-37); MEAN CORPUSCULAR VOLUME 102 fL (79-100); MONO # 0.4 x10^3/uL (0.0-1.1); MONO % 6 % (0-9); NEUT # 3.8 x10^3uL (1.8-7.7); NEUT % 68 % (31-73); PLATELET COUNT 150 x10^3/uL (140-400); RED BLOOD COUNT 2.61 x10^6/uL (4.30-5.70); RED CELL DISTRIBUTION WIDTH 13.9 % (11.5-14.5); WHITE BLOOD COUNT 5.5 x10^3/uL (4.0-11.0)
[2018-06-27 16:27] LABS: PROTHROMBIN TIME PATIENT 12.5 SEC (11.7-14.0)
[2018-06-27 16:40] LABS: CALCIUM 8.4 mg/dL (8.5-10.1); CREATININE 0.9 mg/dL (0.7-1.3); GFR 87.6; POTASSIUM 3.6 mmol/L (3.5-5.1)
[2018-06-27 16:46] LABS: ALBUMIN 2.9 g/dL (3.4-5.0); MAGNESIUM 1.5 mg/dL (1.8-2.4); TOTAL BILIRUBIN 0.3 mg/dL (0.2-1.0); TOTAL PROTEIN 5.9 g/dL (6.4-8.2)
[2018-06-27] MEDS ORDERED: MULTIVIT INFUSN,ADULT 4,VIT K 10 ML, THIAMINE INJ 100 MG, FOLIC ACID INJ 1 MG in IV NOR... IV ONE (17:00)
--- NOTE | 2018-06-27 17:03 | RAD ---
EXAM: Head and cervical spine CT without contrast. HISTORY: Trauma. TECHNIQUE: Computed tomographic images of the head and cervical spine were obtained without contrast. *One or more of the following individualized dose reduction techniques were utilized for this examination: 1. Automated exposure control. 2. Adjustment of the mA and/or kV according to patient size. 3. Use of iterative reconstruction technique. COMPARISON: 04/27/2018. FINDINGS: Head: There is no acute or subacute intracranial hemorrhage. There is no mass effect or midline shift. There is no hydrocephalus. There is cerebral volume loss. There are subtle areas of hypodensity within the cerebral white matter, likely due to chronic small vessel disease. There is near complete opacification of the right maxillary sinus with a large air-fluid level and dense sinus calcification or an ossicle. There is mild left maxillary sinus because of thickening and bilateral maxillary sinus wall thickening due to chronic sinusitis. There is mild bilateral ethmoid and sphenoid sinus mucosal thickening. There is a prominent left parotid gland, likely accentuated due to a patient head tilt. There is chronic deformity of the nasal bones. Cervical spine: There is cervical curvature due to thoracic kyphoscoliosis. There is no significant cervical listhesis. The vertebral bodies are normal in height and the disc spaces are preserved. There is facet arthropathy at multiple levels. No suspicious osseous lesion is seen. There is no fracture. There is partial visualization of cardiac pacemaker leads. The lung apices are unremarkable. At C2-C3, there is a disc bulge. There is severe left facet arthropathy. There is mild to moderate left foraminal stenosis. At C3-C4, there is a disc bulge. There is mild bilateral facet arthropathy. There is mild right foraminal stenosis. At C4-C5, there is a disc bulge. There is no stenosis. At C5-C6, there is a disc bulge. There is no stenosis. At C6-C7, there is a disc bulge. There is no stenosis. IMPRESSION: 1. No acute intracranial finding or evidence of acute cervical spine trauma. 2. Subtle areas of hypodensity within the cerebral white matter, likely due to chronic small vessel disease. 3. Cerebral volume loss. 4. Degenerative change involving the cervical spine, described above. 5. Chronic paranasal sinus disease, described above. Electronically signed by: Estrellita Rose MD (06/27/2018 5:00 PM) [facility]
[2018-06-27 17:22] LABS: BILIRUBIN,URINE NEGATIVE (NEG); CLARITY,URINE CLEAR; COLOR,URINE YELLOW; NITRITE,URINE NEGATIVE (NEG); PH,URINE 5.5; PROTEIN,URINE NEGATIVE (NEG-TRACE); UROBILINOGEN,URINE 0.2 mg/dL (0.2 mg/dL)
[2018-06-27 17:27] LABS: BACTERIA,URINE 0 /HPF (0-FEW); RBC,URINE 0 /HPF (0-2); SQUAMOUS EPITHELIAL CELL,UR FEW /LPF; WBC,URINE 0 /HPF (0-4)
--- NOTE | 2018-06-27 20:38 | PHYS DOC ---
Past Medical History Past Medical History: Anxiety, Arrhythmia, Depression, GERD, Pancreatitis, Other Additional Past Medical Histor: PACEMAKER/DEFIB Past Surgical History: Pacemaker, Other Additional Past Surgical Histo: RIGHT THUMB LIGAMENTS,LEFT EYE SOCKET RECONSTRUCTION Alcohol Use: Heavy Additional Information: PT HAS HAD X3 LARGE BEERS TODAY Drug Use: Marijuana Adult General Chief Complaint Chief Complaint: MECHANICAL FALL HPI HPI Patient is a 53 year old male who presents to the ER with multiple complaints after a fall on the ice 2 days ago. Pt admits that he has been drinking alcohol , states he has had 3 large beers today. He currently complains of neck, low back, and chest pain. Pt states that these symptoms started after he fell. He reports the pain in his left chest increases with movement, coughing, and deep breath. Pt is alert and oriented to person, place, and time. He states that he has an appointment next week for a colonoscopy. He denies any abdominal pain, nausea, vomiting, or diarrhea. Pt states that he is homeless but is currently staying in his mother's garage. Review of Systems Review of Systems Constitutional: Denies fever or chills [] Respiratory: Denies shortness of breath, see HPI Cardiovascular: No additional information not addressed in HPI [] GI: Denies abdominal pain, nausea, vomiting, or diarrhea [] Musculoskeletal: See HPI Neurologic: Denies headache, focal weakness or sensory changes [] All other systems were reviewed and found to be within normal limits, except as documented in this note. Current Medications Current Medications Current Medications Medications (Trade) Dose Ordered Sig/[facility] Start Time Stop Time Status Last Admin Dose Admin Aspirin (Ksenia Aspirin) 325 mg 1X ONCE 06/27/18 15:45 06/27/18 15:46 DC 06/27/18 16:15 325 MG Multivitamins 10 ml/Thiamine HCl 100 mg/Folic Acid 1 mg/Sodium Chloride 1,011.2 ml @ 1,000.088 mls/hr 1X ONCE 06/27/18 17:00 06/27/18 18:00 DC 06/27/18 17:13 1,000.088 MLS/HR Allergies Allergies Allergies Coded Allergies Type Severity Reaction Last Updated Verified No Known Drug Allergies 03/04/17 No Physical Exam Physical Exam Constitutional: Well developed, well nourished, no acute distress, strong odor of ETOH HENT: Normocephalic, atraumatic, bilateral external ears normal, oropharynx moist, no oral exudates, nose normal. [] Eyes: conjunctiva normal, no discharge. [] Neck: Normal range of motion Cardiovascular:Heart rate regular rhythm, no murmur [] Lungs & Thorax: Bilateral breath sounds clear to auscultation, reproducible left chest pain to palpation[] Skin: Warm, dry, no erythema, no rash. [] Back: Lumbar spine tenderness, C-spine tenderness to palpation, No T-spine tenderness [] Extremities: No tenderness, no cyanosis, no clubbing, ROM intact, no edema. [] Neurologic: Alert and oriented X 3, normal motor function, normal sensory function, no focal deficits noted. [] Psychologic: Affect normal, judgement normal, mood normal. [] Current Patient Data Vital Signs Vital Signs Date Time Temp Pulse Resp B/P (MAP) Pulse Ox O2 Delivery O2 Flow Rate FiO2 06/27/18 21:00 60 20 06/27/18 17:14 94 06/27/18 15:09 97.9 98/60 (73) Room Air 97.9 Lab Values Laboratory Tests Test 06/27/18 16:05 06/27/18 17:10 White Blood Count 5.5 x10^3/uL (4.0-11.0) Red Blood Count 2.61 x10^6/uL (4.30-5.70) L Hemoglobin 9.0 g/dL (13.0-17.5) L Hematocrit 26.6 % (39.0-53.0) L Mean Corpuscular Volume 102 fL (79-100) H Mean Corpuscular Hemoglobin 35 pg (25-35) Mean Corpuscular Hemoglobin Concent 34 g/dL (31-37) Red Cell Distribution Width 13.9 % (11.5-14.5) Platelet Count 150 x10^3/uL (140-400) Neutrophils (%) (Auto) 68 % (31-73) Lymphocytes (%) (Auto) 21 % (24-48) L Monocytes (%) (Auto) 6 % (0-9) Eosinophils (%) (Auto) 3 % (0-3) Basophils (%) (Auto) 1 % (0-3) Neutrophils # (Auto) 3.8 x10^3uL (1.8-7.7) Lymphocytes # (Auto) 1.2 x10^3/uL (1.0-4.8) Monocytes # (Auto) 0.4 x10^3/uL (0.0-1.1) Eosinophils # (Auto) 0.2 x10^3/uL (0.0-0.7) Basophils # (Auto) 0.0 x10^3/uL (0.0-0.2) Prothrombin Time 12.5 SEC (11.7-14.0) Prothrombin Time INR 1.0 (0.8-1.1) Sodium Level 140 mmol/L (136-145) Potassium Level 3.6 mmol/L (3.5-5.1) Chloride Level 104 mmol/L (98-107) Carbon Dioxide Level 27 mmol/L (21-32) Anion Gap 9 (6-14) Blood Urea Nitrogen 7 mg/dL (8-26) L Creatinine 0.9 mg/dL (0.7-1.3) Estimated GFR (Cockcroft-Gault) 87.6 BUN/Creatinine Ratio 8 (6-20) Glucose Level 107 mg/dL (70-99) H Calcium Level 8.4 mg/dL (8.5-10.1) L Magnesium Level 1.5 mg/dL (1.8-2.4) L Total Bilirubin 0.3 mg/dL (0.2-1.0) Aspartate Amino Transferase (AST) 27 U/L (15-37) Alanine Aminotransferase (ALT) 20 U/L (16-63) Alkaline Phosphatase 162 U/L (46-116) H Troponin I Quantitative < 0.017 ng/mL (0.000-0.055) JO-Fts-U-Type Natriuretic Peptide 36 pg/mL (0-124) Total Protein 5.9 g/dL (6.4-8.2) L Albumin 2.9 g/dL (3.4-5.0) L Albumin/Globulin Ratio 1.0 (1.0-1.7) Ethyl Alcohol Level 299 mg/dL (0-10) H Urine Collection Type Unknown Urine Color Yellow Urine Clarity Clear Urine pH 5.5 Urine Specific Rye <=1.005 Urine Protein Negative mg/dL (NEG-TRACE) Urine Glucose (UA) Negative mg/dL (NEG) Urine Ketones (Stick) Negative mg/dL (NEG) Urine Blood Negative (NEG) Urine Nitrite Negative (NEG) Urine Bilirubin Negative (NEG) Urine Urobilinogen Dipstick 0.2 mg/dL (0.2 mg/dL) Urine Leukocyte Esterase Negative (NEG) Urine RBC 0 /HPF (0-2) Urine WBC 0 /HPF (0-4) Urine Squamous Epithelial Cells Few /LPF Urine Bacteria 0 /HPF (0-FEW) Laboratory Tests 06/27/18 16:05 Laboratory Tests 06/27/18 16:05 EKG EKG [] Radiology/Procedures Radiology/Procedures PROCEDURE: CT HEAD AND CERVICAL SPINE WO EXAM: Head and cervical spine CT without contrast. HISTORY: Trauma. TECHNIQUE: Computed tomographic images of the head and cervical spine were obtained without contrast. *One or more of the following individualized dose reduction techniques were utilized for this examination: 1. Automated exposure control. 2. Adjustment of the mA and/or kV according to patient size. 3. Use of iterative reconstruction technique. COMPARISON: 04/27/2018. FINDINGS: Head: There is no acute or subacute intracranial hemorrhage. There is no mass effect or midline shift. There is no hydrocephalus. There is cerebral volume loss. There are subtle areas of hypodensity within the cerebral white matter, likely due to chronic small vessel disease. There is near complete opacification of the right maxillary sinus with a large air-fluid level and dense sinus calcification or an ossicle. There is mild left maxillary sinus because of thickening and bilateral maxillary sinus wall thickening due to chronic sinusitis. There is mild bilateral ethmoid and sphenoid sinus mucosal thickening. There is a prominent left parotid gland, likely accentuated due to a patient head tilt. There is chronic deformity of the nasal bones. Cervical spine: There is cervical curvature due to thoracic kyphoscoliosis. There is no significant cervical listhesis. The vertebral bodies are normal in height and the disc spaces are preserved. There is facet arthropathy at multiple levels. No suspicious osseous lesion is seen. There is no fracture. There is partial visualization of cardiac pacemaker leads. The lung apices are unremarkable. At C2-C3, there is a disc bulge. There is severe left facet arthropathy. There is mild to moderate left foraminal stenosis. At C3-C4, there is a disc bulge. There is mild bilateral facet arthropathy. There is mild right foraminal stenosis. At C4-C5, there is a disc bulge. There is no stenosis. At C5-C6, there is a disc bulge. There is no stenosis. At C6-C7, there is a disc bulge. There is no stenosis. IMPRESSION: 1. No acute intracranial finding or evidence of acute cervical spine trauma. 2. Subtle areas of hypodensity within the cerebral white matter, likely due to chronic small vessel disease. 3. Cerebral volume loss. 4. Degenerative change involving the cervical spine, described above. 5. Chronic paranasal sinus disease, described above. Lumbar spine films negative for acute findings read by Dr. Floyd CXR normal read by Dr. Floyd[] Course & Med Decision Making Course & Med Decision Making Pertinent Labs and Imaging studies reviewed. (See chart for details) DX; alcohol intoxication, chest pain, back pain, fall A c-collar was placed by nurse until CT results found no acute findings with Ct head or C-spine. CXR and lumbar films negative. troponin <0.017, etoh 299, Hgb 9.0 Hct 26.6, Ca 8.4, Mg 1.5, alk phos 162, UA negative. Pt was given 1L of banana bag in the ER. Family was contacted and agreed to come take patient home. Pt advised of findings, reports feeling better, agrees with POC. [] Staff Physician Addendum: I was working in the ER during the course of this patient's visit. I was available for consultation as needed, but I was not directly involved in the care of this patient. Dragon Disclaimer Dragon Disclaimer This electronic medical record was generated, in whole or in part, using a voice recognition dictation system. Departure Departure Impression: Primary Impression: Alcohol intoxication Additional Impressions: Fall Low back pain Chest pain in adult Disposition: 01 HOME, SELF-CARE Condition: STABLE Referrals: DARRIN OSPINA MD (PCP) Patient Instructions: Alcohol Intoxication, [id number], Back Pain, Adult, [id number], Chest Pain (Nonspecific), [id number] Additional Instructions: Stop drinking alcohol. You may take tylenol or ibuprofen as needed for pain. Apply ice or heat to sore areas as needed for comfort. Follow up with your primary care doctor if symptoms persist, return to the ER if symptoms worsen. Scripts No Active Prescriptions or Reported Meds Problem Qualifiers Primary Impression: Alcohol intoxication Complication of substance-induced condition: uncomplicated Qualified Codes: F10.920 - Alcohol use, unspecified with intoxication, uncomplicated Additional Impressions: Fall Encounter type: initial encounter Qualified Codes: W19.XXXA - Unspecified fall, initial encounter Low back pain Chronicity: acute Back pain laterality: midline Sciatica presence: without sciatica Qualified Codes: M54.5 - Low back pain WILL GUPTA APRN Jun 27, 2018 20:38 ANTONI FLOYD MD Jun 29, 2018 01:09
[2018-06-27 21:00] VITALS: BP 97/56
--- NOTE | 2018-06-28 02:16 | RAD ---
AP portable chest radiograph 06/27/2018 Clinical History: Chest pain. Fall. Two AP erect portable digital radiographs of the chest were obtained. Comparison study is dated 04/27/2018. A pacemaker is unchanged position. The cardiac silhouette is normal in size. The thoracic aorta is minimally tortuous. No acute pulmonary infiltrate is seen. No pleural effusion or pneumothorax is noted. The osseous structures are unchanged. An old healed right seventh rib fracture is noted. Impression: No acute abnormality is seen. Electronically signed by: Roberto Garsia MD (06/28/2018 2:12 AM) [id number]
--- NOTE | 2018-06-28 02:17 | RAD ---
AP and lateral lumbar spine radiographs 06/27/2018 CLINICAL HISTORY: Low back pain post fall. AP and 2 lateral digital radiographs of the lumbar spine were obtained. Minimal S-shaped curvature of the thoracolumbar spine is seen. No fracture or subluxation of the lumbar vertebrae is noted. Degenerative changes are seen involving the lower lumbar disc spaces consisting of disc space narrowing, vertebral endplate sclerosis and mild to moderate anterior and posterior vertebral body osteophyte formation along with degenerative changes involving the facet joints. IMPRESSION: No fracture or subluxation of the lumbar vertebrae is seen. Electronically signed by: Roberto Garsia MD (06/28/2018 2:14 AM) [id number]
[2018-07-04] MEDS ORDERED: FLUO20CA16 PO (12:03)
[2018-07-04] MEDS ORDERED: TRAZ-85 PO (12:03)
== END 2018-06-27 21:10 | disposition home or self-care (01) ==
LOC: ER 14:35
DX: R07.89 Other chest pain (principal); M54.5 Low back pain; M54.2 Cervicalgia; F10.929 Alcohol use, unspecified with intoxication, unspecified; Y90.8 Blood alcohol level of 240 mg/100 ml or more; G89.11 Acute pain due to trauma; G31.89 Other specified degenerative diseases of nervous system; K21.9 Gastro-esophageal reflux disease without esophagitis; F32.9 Major depressive disorder, single episode, unspecified; F41.9 Anxiety disorder, unspecified; Z95.0 Presence of cardiac pacemaker; W00.0XXA Fall on same level due to ice and snow, initial encounter; Y93.89 Activity, other specified; Y92.89 Other specified places as the place of occurrence of the external cause; Y99.8 Other external cause status
CPT/HCPCS: 36415; 70450; 71045; 72100; 72125; 80053; 81001; 83735; 83880; 84484; 85025; 85610; 93005; 96365; 99284; G0480; J7030

== ENCOUNTER → 2018-07-04 | Day surgery (SDC) | payer OTHER ==
[~2018-07-04] MED LIST changes: +FLUO20CA16 PO; +IV RINGERS,LACTATED 1000ML 1,000 ML IV SCH; +LIDOCAINE 1% PF 2 ML VIAL. ID PRN; +MIDAZOLAM HCL/PF 2 MG/2 ML VIAL. IV PRN; +PROPOFOL 20 ML IV ONE; +TRAZ-85 PO; +fentaNYL PF VIAL 100 MCG/2 ML VIAL IV PRN
[2018-07-04 13:20] VITALS: BP 94/51
== END | disposition home or self-care (01) ==
LOC: SURG 11:44
PROVIDERS: ATTEND Internal Medicine Gastroenterology
DX: K64.0 First degree hemorrhoids (principal); K29.40 Chronic atrophic gastritis without bleeding; F41.9 Anxiety disorder, unspecified; F32.9 Major depressive disorder, single episode, unspecified; D64.9 Anemia, unspecified; Z82.3 Family history of stroke; Z83.3 Family history of diabetes mellitus; Z82.49 Family history of ischemic heart disease and other diseases of the circulatory system; Z72.89 Other problems related to lifestyle; Z79.899 Other long term (current) drug therapy; Z95.0 Presence of cardiac pacemaker
CPT/HCPCS: 43235; 45378; J2704

== ENCOUNTER 2019-03-21 11:41 | Emergency (ER) | payer MEDICAID, OTHER ==
[~2019-03-21] VITALS: Ht 177.8 cm; Wt 55.3 kg
[~2019-03-21 11:41] MED LIST changes: -IV RINGERS,LACTATED 1000ML 1,000 ML IV SCH; -LIDOCAINE 1% PF 2 ML VIAL. ID PRN; -MIDAZOLAM HCL/PF 2 MG/2 ML VIAL. IV PRN; -PROPOFOL 20 ML IV ONE; +TRAZ-118 PO; -TRAZ-85 PO; -fentaNYL PF VIAL 100 MCG/2 ML VIAL IV PRN
[2019-03-21] MEDS ORDERED: IV NORMAL SALINE 1000ML BAG 1,000 ML IV ONE (13:00)
[2019-03-21 13:05] LABS: BASO # 0.1 x10^3/uL (0.0-0.2); BASO % 1 % (0-3); EOS # 0.2 x10^3/uL (0.0-0.7); EOS % 4 % (0-3); HEMOGLOBIN 10.3 g/dL (13.0-17.5); LYMPH # 1.1 x10^3/uL (1.0-4.8); LYMPH % 21 % (24-48); MEAN CORPUSCULAR HEMOGLOBIN 35 pg (25-35); MEAN CORPUSCULAR HGB CONC 34 g/dL (31-37); MEAN CORPUSCULAR VOLUME 104 fL (79-100); MONO # 0.3 x10^3/uL (0.0-1.1); MONO % 5 % (0-9); NEUT # 3.7 x10^3/uL (1.8-7.7); NEUT % 70 % (31-73); PLATELET COUNT 164 x10^3/uL (140-400); WHITE BLOOD COUNT 5.3 x10^3/uL (4.0-11.0)
[2019-03-21 13:14] LABS: PROTHROMBIN TIME PATIENT 12.5 SEC (11.7-14.0)
[2019-03-21 13:21] LABS: GFR 77.3
--- NOTE | 2019-03-21 13:24 | RAD ---
EXAM: Right ankle, 3 views. HISTORY: Twisting injury. COMPARISON: None. FINDINGS: 3 views of the right ankle are obtained. There is lateral predominant ankle soft tissue swelling. There is linear ossific density overlying the medial ankle mortise, possibly due to the sequela of a remote avulsion injury. There is also a tiny chronic corticated ossicle inferior to the medial malleolus. No osteochondral lesion is seen. There are vascular calcifications. IMPRESSION: Lateral predominant ankle soft tissue swelling. There is a linear ossific density overlying the medial ankle mortise likely due to the sequela of remote injury. Electronically signed by: Estrellita Rose MD (03/21/2019 1:22 PM) [id number]
[2019-03-21 13:27] LABS: ALBUMIN/GLOBULIN RATIO 1.3 (1.0-1.7); MAGNESIUM 1.7 mg/dL (1.8-2.4); TOTAL BILIRUBIN 0.4 mg/dL (0.2-1.0); TOTAL PROTEIN 7.2 g/dL (6.4-8.2)
[2019-03-21] MEDS ORDERED: CONTRAST GIVEN. MC PRN (13:30)
[2019-03-21] MEDS ORDERED: IOHEXOL 300 MG/ML 100ML VIAL. IV ONE (13:30)
[2019-03-21] MEDS ORDERED: MULTIVIT INFUSN,ADULT 4,VIT K 10 ML, THIAMINE INJ 100 MG, FOLIC ACID INJ 1 MG in IV NOR... IV ONE (13:30)
--- NOTE | 2019-03-21 13:30 | PHYS DOC ---
Past Medical History Past Medical History: Anemia, Anxiety, Arrhythmia, Depression, GERD, Liver Disease, Pancreatitis, Other Additional Past Medical Histor: pacemaker/defib,right detached retnia,encephalopathy,alcohol abuse,ammonia Past Surgical History: Pacemaker, Other Additional Past Surgical Histo: RIGHT THUMB LIGAMENTS,LEFT EYE SOCKET RECONSTRUCTION Alcohol Use: Heavy Drug Use: Marijuana Adult General Chief Complaint Chief Complaint: WEAKNESS/GENERALIZED HPI HPI Patient is a 54 year old [f__sex] who presents with [] Review of Systems Review of Systems Constitutional: Denies fever or chills [] Eyes: Denies change in visual acuity, redness, or eye pain [] HENT: Denies nasal congestion or sore throat [] Respiratory: Denies cough or shortness of breath [] Cardiovascular: No additional information not addressed in HPI [] GI: Denies abdominal pain, nausea, vomiting, bloody stools or diarrhea [] : Denies dysuria or hematuria [] Musculoskeletal: Denies back pain or joint pain [] Integument: Denies rash or skin lesions [] Neurologic: Denies headache, focal weakness or sensory changes [] Endocrine: Denies polyuria or polydipsia [] All other systems were reviewed and found to be within normal limits, except as documented in this note. Current Medications Current Medications Current Medications Medications (Trade) Dose Ordered Sig/Rose Mary Start Time Stop Time Status Last Admin Dose Admin Info (CONTRAST GIVEN -- Rx MONITORING) 1 each PRN DAILY PRN 03/21/19 13:30 03/23/19 13:29 Iohexol (Omnipaque 300 Mg/ml) 75 ml 1X ONCE 03/21/19 13:30 03/21/19 13:31 DC 03/21/19 13:43 75 ML Ketorolac Tromethamine (Toradol 15mg Vial) 15 mg 1X ONCE 03/21/19 14:30 03/21/19 14:31 DC 03/21/19 14:56 15 MG Magnesium Sulfate 50 ml @ 25 mls/hr 1X ONCE 03/21/19 15:00 03/21/19 16:59 03/21/19 15:20 25 MLS/HR Multivitamins 10 ml/Thiamine HCl 100 mg/Folic Acid 1 mg/Sodium Chloride 1,011.2 ml @ 1,000.088 mls/hr 1X ONCE 03/21/19 13:30 03/21/19 14:30 DC 03/21/19 13:29 1,000.088 MLS/HR Sodium Chloride 1,000 ml @ 1,000 mls/hr 1X ONCE 03/21/19 13:00 03/21/19 13:59 DC 03/21/19 13:29 1,000 MLS/HR Allergies Allergies Allergies Coded Allergies Type Severity Reaction Last Updated Verified No Known Drug Allergies 07/04/18 No Physical Exam Physical Exam Constitutional: Well developed, well nourished, no acute distress, non-toxic appearance. [] HENT: Normocephalic, atraumatic, bilateral external ears normal, oropharynx moist, no oral exudates, nose normal. [] Eyes: PERRLA, EOMI, conjunctiva normal, no discharge. [] Neck: Normal range of motion, no tenderness, supple, no stridor. [] Cardiovascular:Heart rate regular rhythm, no murmur [] Lungs & Thorax: Bilateral breath sounds clear to auscultation [] Abdomen: Bowel sounds normal, soft, no tenderness, no masses, no pulsatile masses. [] Skin: Warm, dry, no erythema, no rash. [] Back: No tenderness, no CVA tenderness. [] Extremities: No tenderness, no cyanosis, no clubbing, ROM intact, no edema. [] Neurologic: Alert and oriented X 3, normal motor function, normal sensory function, no focal deficits noted. [] Psychologic: Affect normal, judgement normal, mood normal. [] Current Patient Data Vital Signs Vital Signs Date Time Temp Pulse Resp B/P (MAP) Pulse Ox O2 Delivery O2 Flow Rate FiO2 03/21/19 13:44 62 23 94 03/21/19 12:12 97.8 102/59 (73) Room Air 97.8 Lab Values Laboratory Tests Test 03/21/19 12:55 03/21/19 13:20 White Blood Count 5.3 x10^3/uL (4.0-11.0) Red Blood Count 2.90 x10^6/uL (4.30-5.70) L Hemoglobin 10.3 g/dL (13.0-17.5) L Hematocrit 30.0 % (39.0-53.0) L Mean Corpuscular Volume 104 fL (79-100) H Mean Corpuscular Hemoglobin 35 pg (25-35) Mean Corpuscular Hemoglobin Concent 34 g/dL (31-37) Red Cell Distribution Width 14.0 % (11.5-14.5) Platelet Count 164 x10^3/uL (140-400) Neutrophils (%) (Auto) 70 % (31-73) Lymphocytes (%) (Auto) 21 % (24-48) L Monocytes (%) (Auto) 5 % (0-9) Eosinophils (%) (Auto) 4 % (0-3) H Basophils (%) (Auto) 1 % (0-3) Neutrophils # (Auto) 3.7 x10^3/uL (1.8-7.7) Lymphocytes # (Auto) 1.1 x10^3/uL (1.0-4.8) Monocytes # (Auto) 0.3 x10^3/uL (0.0-1.1) Eosinophils # (Auto) 0.2 x10^3/uL (0.0-0.7) Basophils # (Auto) 0.1 x10^3/uL (0.0-0.2) Prothrombin Time 12.5 SEC (11.7-14.0) Prothrombin Time INR 1.0 (0.8-1.1) Activated Partial Thromboplast Time 32 SEC (24-38) Sodium Level 137 mmol/L (136-145) Potassium Level 4.0 mmol/L (3.5-5.1) Chloride Level 99 mmol/L (98-107) Carbon Dioxide Level 29 mmol/L (21-32) Anion Gap 9 (6-14) Blood Urea Nitrogen 10 mg/dL (8-26) Creatinine 1.0 mg/dL (0.7-1.3) Estimated GFR (Cockcroft-Gault) 77.3 BUN/Creatinine Ratio 10 (6-20) Glucose Level 99 mg/dL (70-99) Lactic Acid Level 1.2 mmol/L (0.4-2.0) Calcium Level 9.0 mg/dL (8.5-10.1) Magnesium Level 1.7 mg/dL (1.8-2.4) L Total Bilirubin 0.4 mg/dL (0.2-1.0) Aspartate Amino Transferase (AST) 58 U/L (15-37) H Alanine Aminotransferase (ALT) 32 U/L (16-63) Alkaline Phosphatase 166 U/L (46-116) H Ammonia 12 mcmol/L (11-34) Creatine Kinase 164 U/L (39-308) Creatine Kinase MB (Mass) 1.7 ng/mL (0.0-3.6) Creatine Kinase MB Relative Index 1.0 % (0-4) Troponin I Quantitative < 0.017 ng/mL (0.000-0.055) Total Protein 7.2 g/dL (6.4-8.2) Albumin 4.0 g/dL (3.4-5.0) Albumin/Globulin Ratio 1.3 (1.0-1.7) Lipase 19 U/L (73-393) L Ethyl Alcohol Level 325 mg/dL (0-10) H Urine Opiates Screen Pos (NEG) Urine Methadone Screen Neg (NEG) Urine Barbiturates Neg (NEG) Urine Phencyclidine Screen Neg (NEG) Urine Amphetamine/Methamphetamine Neg (NEG) Urine Benzodiazepines Screen Neg (NEG) Urine Cocaine Screen Neg (NEG) Urine Cannabinoids Screen Pos (NEG) Urine Ethyl Alcohol Pos (NEG) Laboratory Tests 03/21/19 12:55 Laboratory Tests 03/21/19 12:55 EKG EKG @1308 NSR at 60bpm, NO ST elevation Radiology/Procedures Radiology/Procedures PROCEDURE: CT CHEST ABD PELVIS W/CONTRAST PQRS Compliance statement: One or more of the following individualized dose reduction techniques were utilized for this examination: 1. Automated exposure control. 2. Adjustment of the mA and/or kV according to patient size. 3. Use of iterative reconstruction technique. Indication:Weakness, pain in the lower chest/upper abdomen. TECHNIQUE: CT chest, abdomen and pelvis with IV contrast with multiplanar reformats. COMPARISON: CT abdomen pelvis from 05/21/[address] chest from 04/27/2018. FINDINGS: Heart is normal in size. No pericardial or pleural effusion. Left chest wall cardiac pacer is seen with its leads in the right heart. No enlarged axillary, mediastinal or hilar adenopathy. Lungs are clear. No suspicious bony chest. Liver, spleen, gallbladder, adrenals and kidneys within normal limits. No free pelvic fluid or ascites. Atrophic pancreas with multiple punctate calcifications suggesting sequela of chronic pancreatitis. The appearance of the pancreas is similar to previous exam. No enlarged retroperitoneal or pelvic adenopathy. No bowel obstruction. Haziness is seen in the left lateral abdominal mesentery and in the fat in the left paracolic gutter. No pneumoperitoneum. Prostate is nonenlarged. Bladder demonstrates no radiopaque stone. No suspicious bony lesion. IMPRESSION: 1. No acute findings in the chest. 2. Haziness in the left abdominal mesentery may be secondary to mesenteric edema or inflammation. No bowel obstruction. 3. Stigmata of chronic pancreatitis. Electronically signed by: Tenzin Curtis DO (03/21/2019 2:01 PM) [facility] PROCEDURE: ANKLE RIGHT 3V EXAM: Right ankle, 3 views. HISTORY: Twisting injury. COMPARISON: None. FINDINGS: 3 views of the right ankle are obtained. There is lateral predominant ankle soft tissue swelling. There is linear ossific density overlying the medial ankle mortise, possibly due to the sequela of a remote avulsion injury. There is also a tiny chronic corticated ossicle inferior to the medial malleolus. No osteochondral lesion is seen. There are vascular calcifications. IMPRESSION: Lateral predominant ankle soft tissue swelling. There is a linear ossific density overlying the medial ankle mortise likely due to the sequela of remote injury. Electronically signed by: Estrellita Rose MD (03/21/2019 1:22 PM) [place] [id number] Course & Med Decision Making Course & Med Decision Making Pertinent Labs and Imaging studies reviewed. (See chart for details) [] Dragon Disclaimer Dragon Disclaimer This electronic medical record was generated, in whole or in part, using a voice recognition dictation system. Departure Departure Impression: Primary Impression: Alcohol abuse Additional Impression: Ankle sprain Disposition: 01 HOME, SELF-CARE (to detox) Condition: STABLE Referrals: UNKNOWN PCP NAME (PCP) Patient Instructions: Alcohol and Drug Addiction, Finding Treatment, Ankle Sprain, Inkb-ev-Fbvw, Chronic Alcoholism, How Much is Too Much Alcohol, Tovj-ck-Rabu Scripts Chlordiazepoxide Hcl (CHLORDIAZEPOXIDE HCL) 25 Mg Capsule 1-2 TAB PO QID PRN for WITHDRAWAL IRRITABILITY, #20 CAP Prov: KELSIE GANDARA DO 03/21/19 Naproxen (NAPROXEN) 375 Mg Tablet.dr 375 MG PO TID PRN PRN for PAIN, #30 TAB.SR Prov: KELSIE GANDARA DO 03/21/19 Problem Qualifiers Additional Impression: Ankle sprain Encounter type: initial encounter Involved ligament of ankle: unspecified ligament Laterality: right Qualified Codes: S93.401A - Sprain of unspecified ligament of right ankle, initial encounter KELSIE GANDARA DO Mar 21, 2019 13:30
--- NOTE | 2019-03-21 13:36 | EKG ---
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
[2019-03-21 13:45] LABS: BARBITURATES NEG (NEG); BENZODIAZEPINES NEG (NEG); CANNABINOIDS POS (NEG); COCAINE NEG (NEG); METHADONE NEG (NEG); OPIATES POS (NEG); PHENCYCLIDINE NEG (NEG)
[2019-03-21 13:51] LABS: AMPHETAMINE/METHAMPHETAMINE NEG (NEG)
--- NOTE | 2019-03-21 14:03 | RAD ---
PQRS Compliance statement: One or more of the following individualized dose reduction techniques were utilized for this examination: 1. Automated exposure control. 2. Adjustment of the mA and/or kV according to patient size. 3. Use of iterative reconstruction technique. Indication:Weakness, pain in the lower chest/upper abdomen. TECHNIQUE: CT chest, abdomen and pelvis with IV contrast with multiplanar reformats. COMPARISON: CT abdomen pelvis from 05/21/[address] chest from 04/27/2018. FINDINGS: Heart is normal in size. No pericardial or pleural effusion. Left chest wall cardiac pacer is seen with its leads in the right heart. No enlarged axillary, mediastinal or hilar adenopathy. Lungs are clear. No suspicious bony chest. Liver, spleen, gallbladder, adrenals and kidneys within normal limits. No free pelvic fluid or ascites. Atrophic pancreas with multiple punctate calcifications suggesting sequela of chronic pancreatitis. The appearance of the pancreas is similar to previous exam. No enlarged retroperitoneal or pelvic adenopathy. No bowel obstruction. Haziness is seen in the left lateral abdominal mesentery and in the fat in the left paracolic gutter. No pneumoperitoneum. Prostate is nonenlarged. Bladder demonstrates no radiopaque stone. No suspicious bony lesion. IMPRESSION: 1. No acute findings in the chest. 2. Haziness in the left abdominal mesentery may be secondary to mesenteric edema or inflammation. No bowel obstruction. 3. Stigmata of chronic pancreatitis. Electronically signed by: Tenzin Curtis DO (03/21/2019 2:01 PM) [facility]
[2019-03-21] MEDS ORDERED: KETOROLAC 15 MG/ML VIAL. IV ONE (14:30)
[2019-03-21] MEDS ORDERED: MAGNESIUM SULFATE 2GM 50 ML IV ONE (15:00)
[2019-03-21] MEDS ORDERED: NAPR375T5 PO (16:28)
[2019-03-21] MEDS ORDERED: CHLO25CA9 PO (16:28)
[2019-03-21 17:30] VITALS: BP 101/56
[2019-03-27] MEDS ORDERED: NAPR-683 PO (01:48)
== END 2019-03-21 18:00 | disposition home or self-care (01) ==
LOC: ER 11:41
DX: S93.491A Sprain of other ligament of right ankle, initial encounter (principal); F10.20 Alcohol dependence, uncomplicated; Y90.8 Blood alcohol level of 240 mg/100 ml or more; F41.9 Anxiety disorder, unspecified; F32.9 Major depressive disorder, single episode, unspecified; K21.9 Gastro-esophageal reflux disease without esophagitis; Z95.0 Presence of cardiac pacemaker; X50.1XXA Overexertion from prolonged static or awkward postures, initial encounter; Y93.89 Activity, other specified; Y92.89 Other specified places as the place of occurrence of the external cause; Y99.8 Other external cause status
CPT/HCPCS: 36415; 71260; 73610; 74177; 80053; 80307; 82140; 82553; 83605; 83690; 83735; 84484; 85025; 85610; 85730; 93005; 96365; 96366; 96367; 96375; 99285; G0480; J1885; J3475; J7030; Q9967

== ENCOUNTER 2019-07-11 15:25 | Emergency (ER) | payer MEDICAID ==
[~2019-07-11] VITALS: Ht 177.8 cm; Wt 63.5 kg
[~2019-07-11 15:25] MED LIST changes: +CHLO25CA9 PO; +NAPR-683 PO; +NAPR375T5 PO
[2019-07-11] MEDS ORDERED: IV NORMAL SALINE 1000ML BAG 1,000 ML IV SCH (15:52)
--- NOTE | 2019-07-11 16:10 | EKG ---
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
--- NOTE | 2019-07-11 16:26 | RAD ---
Single view of the chest. 07/11/2019 3:52 PM Indication: Chest wall pain Comparison: Rib series March 27, 2019 Findings: Dual-lead pacemaking device from a left subclavian approach is unchanged. Heart size is normal. No pneumothorax or pleural effusion is seen. No focal consolidative infiltrate is identified. No acute osseous changes are noted in the interim. Healed bilateral rib fractures are similar to comparison study. Impression: No evidence of acute cardiopulmonary process. Or evidence of acute change from comparison study Electronically signed by: Tod Hudson MD (07/11/2019 4:23 PM) [facility]
--- NOTE | 2019-07-11 16:29 | RAD ---
Indication: Chest wall pain TECHNIQUE: 3 views of the left shoulder COMPARISON: None FINDINGS: Left chest wall cardiac pacer is seen with leads projecting over the heart. Heart is normal in size. No acute dislocation. Mild acromioclavicular and glenohumeral joint osteoarthritis. Left lung is clear. There is linear lucency through the distal clavicle suggesting a questionable nondisplaced fracture. Clinically correlate with focal tenderness. IMPRESSION: As above. Electronically signed by: Tenzin Curtis DO (07/11/2019 4:26 PM) [facility]
--- NOTE | 2019-07-11 16:44 | EKG ---
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
--- NOTE | 2019-07-11 16:48 | PHYS DOC ---
Past Medical History Past Medical History: Anemia, Anxiety, Arrhythmia, Depression, GERD, Liver Disease, Pancreatitis, Other Additional Past Medical Histor: pacemaker/defib,right detached retnia,encephalopathy,alcohol abuse,ammonia Past Surgical History: Pacemaker, Other Additional Past Surgical Histo: RIGHT THUMB LIGAMENTS,LEFT EYE SOCKET RECONSTRUCTION Alcohol Use: Heavy Drug Use: Marijuana Adult General Chief Complaint Chief Complaint: SHOUDLER HPI HPI Patient is a 54-year-old male who presents with complaint of pain in his left shoulder region and anterior chest. Patient states that he is also concerned that may be one of his wires from his pacemaker might of come loose. Patient does admit to drinking some alcohol today. Patient does not recall any specific injury to his shoulder but he does indicate that it hurts a lot to move it.[] Review of Systems Review of Systems Constitutional: Denies fever or chills [] Respiratory: Denies cough or shortness of breath [] Cardiovascular: No additional information not addressed in HPI [] GI: Denies abdominal pain, nausea, vomiting or diarrhea [] Musculoskeletal: Positive left shoulder pain [] Integument: Denies rash or skin lesions [] All other systems were reviewed and found to be within normal limits, except as documented in this note. Current Medications Current Medications Current Medications Medications (Trade) Dose Ordered Sig/Rose Mary Start Time Stop Time Status Last Admin Dose Admin Sodium Chloride 1,000 ml @ 1,000 mls/hr Q1H 07/11/19 15:52 07/11/19 16:51 DC 07/11/19 17:10 1,000 MLS/HR Allergies Allergies Allergies Coded Allergies Type Severity Reaction Last Updated Verified No Known Drug Allergies 07/04/18 No Physical Exam Physical Exam Constitutional: Well developed, well nourished, no acute distress, non-toxic appearance. [] HENT: Normocephalic, atraumatic, bilateral external ears normal, oropharynx moist, no oral exudates, nose normal. [] Eyes: PERRLA, EOMI, conjunctiva normal, no discharge. [] Neck: Normal range of motion, no tenderness, supple. [] Cardiovascular: Regular rate and rhythm[] Lungs & Thorax: Bilateral breath sounds clear to auscultation [] Abdomen: Bowel sounds normal, soft, no tenderness. [] Skin: Warm, dry, no erythema, no rash. [] Extremities: No tenderness, no cyanosis, no clubbing, ROM intact. [] Neurologic: Alert and oriented X 3, no focal deficits noted. [] Current Patient Data Vital Signs Vital Signs Date Time Temp Pulse Resp B/P (MAP) Pulse Ox O2 Delivery O2 Flow Rate FiO2 07/11/19 15:27 97.4 60 13 145/91 (109) 100 Room Air 97.4 Lab Values Laboratory Tests Test 07/11/19 17:03 White Blood Count 5.2 x10^3/uL (4.0-11.0) Red Blood Count 3.57 x10^6/uL (4.30-5.70) L Hemoglobin 11.3 g/dL (13.0-17.5) L Hematocrit 34.1 % (39.0-53.0) L Mean Corpuscular Volume 96 fL (79-100) Mean Corpuscular Hemoglobin 32 pg (25-35) Mean Corpuscular Hemoglobin Concent 33 g/dL (31-37) Red Cell Distribution Width 15.3 % (11.5-14.5) H Platelet Count 155 x10^3/uL (140-400) Neutrophils (%) (Auto) 64 % (31-73) Lymphocytes (%) (Auto) 22 % (24-48) L Monocytes (%) (Auto) 4 % (0-9) Eosinophils (%) (Auto) 9 % (0-3) H Basophils (%) (Auto) 1 % (0-3) Neutrophils # (Auto) 3.3 x10^3/uL (1.8-7.7) Lymphocytes # (Auto) 1.2 x10^3/uL (1.0-4.8) Monocytes # (Auto) 0.2 x10^3/uL (0.0-1.1) Eosinophils # (Auto) 0.5 x10^3/uL (0.0-0.7) Basophils # (Auto) 0.1 x10^3/uL (0.0-0.2) Sodium Level 136 mmol/L (136-145) Potassium Level 3.7 mmol/L (3.5-5.1) Chloride Level 99 mmol/L (98-107) Carbon Dioxide Level 24 mmol/L (21-32) Anion Gap 13 (6-14) Blood Urea Nitrogen 8 mg/dL (8-26) Creatinine 0.9 mg/dL (0.7-1.3) Estimated GFR (Cockcroft-Gault) 87.3 BUN/Creatinine Ratio 9 (6-20) Glucose Level 109 mg/dL (70-99) H Calcium Level 8.7 mg/dL (8.5-10.1) Magnesium Level 1.6 mg/dL (1.8-2.4) L Total Bilirubin 0.2 mg/dL (0.2-1.0) Aspartate Amino Transferase (AST) 39 U/L (15-37) H Alanine Aminotransferase (ALT) 21 U/L (16-63) Alkaline Phosphatase 128 U/L (46-116) H Troponin I Quantitative < 0.017 ng/mL (0.000-0.055) Total Protein 8.2 g/dL (6.4-8.2) Albumin 4.2 g/dL (3.4-5.0) Albumin/Globulin Ratio 1.1 (1.0-1.7) Laboratory Tests 07/11/19 17:03 Laboratory Tests 07/11/19 17:03 EKG EKG [] Radiology/Procedures Radiology/Procedures [] Impressions: PROCEDURE: PORTABLE CHEST 1V Single view of the chest. 07/11/2019 3:52 PM Indication: Chest wall pain Comparison: Rib series March 27, 2019 Findings: Dual-lead pacemaking device from a left subclavian approach is unchanged. Heart size is normal. No pneumothorax or pleural effusion is seen. No focal consolidative infiltrate is identified. No acute osseous changes are noted in the interim. Healed bilateral rib fractures are similar to comparison study. Impression: No evidence of acute cardiopulmonary process. Or evidence of acute change from comparison study Electronically signed by: Tod Bryan MD (07/11/2019 4:23 PM) [facility] DICTATED and SIGNED BY: TOD BRYAN MD DATE: 07/11/19 1623 PROCEDURE: PORTABLE CHEST 1V Single view of the chest. 07/11/2019 3:52 PM Indication: Chest wall pain Comparison: Rib series March 27, 2019 Findings: Dual-lead pacemaking device from a left subclavian approach is unchanged. Heart size is normal. No pneumothorax or pleural effusion is seen. No focal consolidative infiltrate is identified. No acute osseous changes are noted in the interim. Healed bilateral rib fractures are similar to comparison study. Impression: No evidence of acute cardiopulmonary process. Or evidence of acute change from comparison study Electronically signed by: Tod Bryan MD (07/11/2019 4:23 PM) [facility] DICTATED and SIGNED BY: TOD BRYAN MD DATE: 07/11/19 1623 Course & Med Decision Making Course & Med Decision Making Pertinent Labs and Imaging studies reviewed. (See chart for details) [] Dragon Disclaimer Dragon Disclaimer This electronic medical record was generated, in whole or in part, using a voice recognition dictation system. Departure Departure Impression: Primary Impression: Clavicle fracture Additional Impression: Alcohol intoxication Disposition: HOME, SELF-CARE Condition: STABLE Referrals: NO PCP (PCP) Patient Instructions: Alcohol Intoxication, Clavicle Fracture Scripts Tramadol Hcl (TRAMADOL HCL) 50 Mg Tablet 50 MG PO Q6HRS PRN for PAIN, #1 TAB Prov: JODI RANGEL Jr. DO 07/11/19 Diclofenac Sodium (DICLOFENAC SODIUM) 50 Mg Tablet.dr 1 TAB PO BID PRN for PAIN, #20 TAB Prov: JODI RANGEL Jr. DO 07/11/19 Problem Qualifiers Primary Impression: Clavicle fracture Encounter type: initial encounter Clavicle location: lateral end Fracture type: closed Fracture alignment: nondisplaced Laterality: left Qualified Codes: S42.035A - Nondisplaced fracture of lateral end of left clavicle, initial encounter for closed fracture Additional Impression: Alcohol intoxication Complication of substance-induced condition: uncomplicated Qualified Codes: F10.920 - Alcohol use, unspecified with intoxication, uncomplicated JODI RANGEL Jr. DO Jul 11, 2019 16:48
[2019-07-11 17:22] LABS: CALCIUM 8.7 mg/dL (8.5-10.1); CREATININE 0.9 mg/dL (0.7-1.3); GFR 87.3; POTASSIUM 3.7 mmol/L (3.5-5.1)
[2019-07-11 17:28] LABS: ALBUMIN 4.2 g/dL (3.4-5.0); ALBUMIN/GLOBULIN RATIO 1.1 (1.0-1.7); MAGNESIUM 1.6 mg/dL (1.8-2.4); TOTAL BILIRUBIN 0.2 mg/dL (0.2-1.0); TOTAL PROTEIN 8.2 g/dL (6.4-8.2)
[2019-07-11 17:29] LABS: BASO # 0.1 x10^3/uL (0.0-0.2); BASO % 1 % (0-3); EOS # 0.5 x10^3/uL (0.0-0.7); EOS % 9 % (0-3); HEMATOCRIT 34.1 % (39.0-53.0); HEMOGLOBIN 11.3 g/dL (13.0-17.5); LYMPH # 1.2 x10^3/uL (1.0-4.8); LYMPH % 22 % (24-48); MEAN CORPUSCULAR HEMOGLOBIN 32 pg (25-35); MEAN CORPUSCULAR HGB CONC 33 g/dL (31-37); MEAN CORPUSCULAR VOLUME 96 fL (79-100); MONO # 0.2 x10^3/uL (0.0-1.1); MONO % 4 % (0-9); NEUT # 3.3 x10^3/uL (1.8-7.7); NEUT % 64 % (31-73); PLATELET COUNT 155 x10^3/uL (140-400); RED BLOOD COUNT 3.57 x10^6/uL (4.30-5.70); RED CELL DISTRIBUTION WIDTH 15.3 % (11.5-14.5); WHITE BLOOD COUNT 5.2 x10^3/uL (4.0-11.0)
[2019-07-11] MEDS ORDERED: MAGNESIUM OXIDE 400 MG TABLET PO STA (17:43)
[2019-07-11] MEDS ORDERED: TRAM50TA PO (17:47)
[2019-07-11] MEDS ORDERED: DICL50TA4 PO (17:47)
[2019-07-11 18:00] VITALS: BP 121/69
[2019-07-11 18:16] LABS: BILIRUBIN,URINE NEGATIVE (NEG); CLARITY,URINE CLEAR; COLOR,URINE YELLOW; NITRITE,URINE NEGATIVE (NEG); PH,URINE 5.5; PROTEIN,URINE NEGATIVE (NEG-TRACE); UROBILINOGEN,URINE 0.2 mg/dL (0.2 mg/dL)
[2019-07-11 18:23] LABS: HYALINE CASTS, URINE FEW /HPF; SQUAMOUS EPITHELIAL CELL,UR OCC /LPF
[2019-07-11 18:24] LABS: BACTERIA,URINE 0 /HPF (0-FEW); RBC,URINE OCC /HPF (0-2)
== END 2019-07-11 18:25 | disposition home or self-care (01) ==
LOC: ER 15:25
DX: S42.035A Nondisplaced fracture of lateral end of left clavicle, initial encounter for closed fracture (principal); F10.229 Alcohol dependence with intoxication, unspecified; R07.89 Other chest pain; Z86.2 Personal history of diseases of the blood and blood-forming organs and certain disorders involving the immune mechanism; F41.9 Anxiety disorder, unspecified; F32.9 Major depressive disorder, single episode, unspecified; K21.9 Gastro-esophageal reflux disease without esophagitis; Z95.0 Presence of cardiac pacemaker; Y90.9 Presence of alcohol in blood, level not specified; X58.XXXA Exposure to other specified factors, initial encounter; Y93.89 Activity, other specified; Y92.89 Other specified places as the place of occurrence of the external cause; Y99.8 Other external cause status
CPT/HCPCS: 36415; 71045; 73030; 80053; 81001; 83735; 84484; 85025; 93005; 99285; J7030

== ENCOUNTER 2020-05-12 20:42 | Emergency (ER) | payer MEDICAID ==
[~2020-05-12] VITALS: Ht 177.8 cm; Wt 69.0 kg
[~2020-05-12 20:42] MED LIST changes: +DICL50TA4 PO; +TRAM50TA PO
[2020-05-12 21:30] VITALS: BP 105/43
--- NOTE | 2020-05-12 23:18 | RAD ---
EXAM: CT HEAD WITHOUT CONTRAST. HISTORY: Left occipital mass. TECHNIQUE: Computed tomography of the head was performed without intravenous contrast. One or more of the following individualized dose reduction techniques were utilized for this examination: 1. Automated exposure control. 2. Adjustment of the mA and/or kV according to patient size. 3. Use of iterative reconstruction technique. COMPARISON: 03/27/2019. FINDINGS: There is no intracranial hemorrhage. Hypoattenuation within the periventricular white matter indicates mild chronic microangiopathic change. Prominence of the lateral ventricles and hemispheric sulci indicates mild atrophy. A subcutaneous rim-enhancing mass in the left occipital scalp measures 2.4 x 1.7 cm. There is no involvement of the underlying calvarium. A fat density mass within the left parietal scalp measures 1.3 x 0.7 cm and is consistent with a lipoma. There is an air-fluid level in the right maxillary sinus. The right maxillary sinus also contains a 9 mm dense calcification, stable since the prior study. Wall thickening of both maxillary sinuses is consistent with chronic inflammation. There is mild mucosal thickening in the sphenoid sinus. The orbits are unremarkable. The temporal bones are unremarkable. The calvarium reveals no suspicious lesions. IMPRESSION: 1. 2.4 cm subcutaneous rim-enhancing mass along the left occipital scalp. Correlate for folliculitis/abscess or other cutaneous associated lesions. 2. Acute on chronic right maxillary sinusitis. 3. Mild atrophy and chronic microangiopathic white matter change. Electronically signed by: Selvin Weaver MD (05/12/2020 11:15 PM) [facility]
[2020-05-12] MEDS ORDERED: DICL50TA2 PO (23:39)
[2020-05-12] MEDS ORDERED: AMOX1TAB61 PO (23:39)
[2020-05-12] MEDS ORDERED: CYCL10TA2 PO (23:39)
[2020-05-12] MEDS ORDERED: LIDO30CR41 TP (23:39)
--- NOTE | 2020-05-12 23:39 | PHYS DOC ---
Past Medical History Past Medical History: Alcoholism, Anemia, Anxiety, Arrhythmia, Depression, GERD, Liver Disease, Pancreatitis, Other Additional Past Medical Histor: pacemaker/defib,right detached retnia,encephalopathy,alcohol abuse,ammonia (FRANCY SANCHEZ APRN) Past Surgical History: Pacemaker, Other Additional Past Surgical Histo: RIGHT THUMB LIGAMENTS,LEFT EYE SOCKET RECONSTRUCTION (FRANCY SANCHEZ APRN) Smoking Status: Current Every Day Smoker Alcohol Use: Heavy Drug Use: Marijuana (FRANCY SANCHEZ APRN) General Adult EDM: Chief Complaint: NECK PAIN HPI: HPI: Patient is a 55 year old male patient who presents to the ED today complaining of a lump on the back of his head that has been there for 3 days. Patient states the lump radiates pain to his neck. Denies any injury. Denies any fever. (FRANCY SANCHEZ APRN) Review of Systems: Review of Systems: Constitutional: Denies fever or chills. [] Eyes: Denies change in visual acuity. [] HENT: Denies nasal congestion or sore throat. [] Respiratory: Denies cough or shortness of breath. [] Cardiovascular: Denies chest pain or edema. [] GI: Denies abdominal pain, nausea, vomiting, bloody stools or diarrhea. [] : Denies dysuria. [] Musculoskeletal: Denies back pain or joint pain. [] Integument: Reports a lump to the left side of the head Neurologic: Denies headache, focal weakness or sensory changes. [] Endocrine: Denies polyuria or polydipsia. [] Lymphatic: Denies swollen glands. [] Psychiatric: Denies depression or anxiety. [] (FRANCY SANCHEZ APRN) Heart Score: Risk Factors: Risk Factors: DM, Current or recent (<one month) smoker, HTN, HLP, family history of CAD, obesity. Risk Scores: Score 0 - 3: 2.5% MACE over next 6 weeks - Discharge Home Score 4 - 6: 20.3% MACE over next 6 weeks - Admit for Clinical Observation Score 7 - 10: 72.7% MACE over next 6 weeks - Early Invasive Strategies (FRANCY SANCHEZ APRN) Allergies: Allergies: Allergies Coded Allergies Type Severity Reaction Last Updated Verified No Known Drug Allergies 07/04/18 No (FRANCY SANCHEZ APRN) Physical Exam: PE: Constitutional: Well developed, well nourished, no acute distress, non-toxic appearance. [] HENT: Normocephalic, atraumatic, bilateral external ears normal, oropharynx moist, no oral exudates, nose normal. [] Eyes: PERRLA, EOMI, conjunctiva normal, no discharge. [] Neck: Normal range of motion, no tenderness, supple, no stridor. [] Cardiovascular:Heart rate regular rhythm, no murmur [] Lungs & Thorax: Bilateral breath sounds clear to auscultation [] Abdomen: Bowel sounds normal, soft, no tenderness, no masses, no pulsatile masses. [] Skin: Warm, dry, left occipital scalp with an indurated area approximately 2 cm, the area is not fluctuant, there is no erythema, slight tenderness in the region Back: No tenderness, no CVA tenderness. [] Extremities: No tenderness, no cyanosis, no clubbing, ROM intact, no edema. [] Neurologic: Alert and oriented X 3, normal motor function, normal sensory function, no focal deficits noted. [] Psychologic: Affect normal, judgement normal, mood normal. [] (FRANCY SANCHEZ APRN) Current Patient Data: Vital Signs: Vital Signs Date Time Temp Pulse Resp B/P (MAP) Pulse Ox O2 Delivery O2 Flow Rate FiO2 05/12/20 21:30 98.1 83 18 105/43 (63) 98 Room Air 98.1 (FRANCY SANCHEZ APRN) EKG: EKG: [] (FRANCY SANCHEZ APRN) Radiology/Procedures: Radiology/Procedures: []PROCEDURE: CT HEAD WO CONTRAST EXAM: CT HEAD WITHOUT CONTRAST. HISTORY: Left occipital mass. TECHNIQUE: Computed tomography of the head was performed without intravenous contrast. One or more of the following individualized dose reduction techniques were utilized for this examination: 1. Automated exposure control. 2. Adjustment of the mA and/or kV according to patient size. 3. Use of iterative reconstruction technique. COMPARISON: 03/27/2019. FINDINGS: There is no intracranial hemorrhage. Hypoattenuation within the periventricular white matter indicates mild chronic microangiopathic change. Prominence of the lateral ventricles and hemispheric sulci indicates mild atrophy. A subcutaneous rim-enhancing mass in the left occipital scalp measures 2.4 x 1.7 cm. There is no involvement of the underlying calvarium. A fat density mass within the left parietal scalp measures 1.3 x 0.7 cm and is consistent with a lipoma. There is an air-fluid level in the right maxillary sinus. The right maxillary sinus also contains a 9 mm dense calcification, stable since the prior study. Wall thickening of both maxillary sinuses is consistent with chronic inflammation. There is mild mucosal thickening in the sphenoid sinus. The orbits are unremarkable. The temporal bones are unremarkable. The calvarium reveals no suspicious lesions. IMPRESSION: 1. 2.4 cm subcutaneous rim-enhancing mass along the left occipital scalp. Correlate for folliculitis/abscess or other cutaneous associated lesions. 2. Acute on chronic right maxillary sinusitis. 3. Mild atrophy and chronic microangiopathic white matter change. Electronically signed by: Selvin Weaver MD (05/12/2020 11:15 PM) [facility] DICTATED and SIGNED BY: MICHELE WEAVER MD DATE: 05/12/20 7504 (FRANCY SANCHEZ APRN) Course & Med Decision Making: Course & Med Decision Making Pertinent Labs and Imaging studies reviewed. (See chart for details) This is a 55-year-old male patient presented to the ED today complaining of a mass to the left occipital scalp. CT of the head was noted for 2.4 cm subcutaneous rim-enhancing mass along the left occipital scalp. Correlate for folliculitis/abscess or other cutaneous associated lesions. Also noted for acute on chronic right maxillary sinusitis.Mild atrophy and chronic microangiopathic white matter change. The region on patient's scalp does not have any redness, no fluctuance. It could be a fatty tumor or an early abscess. I provided patient a general surgeon for follow-up. Placed patient on Augmentin which will cover him for acute sinusitis on the possible infection to this region. Tetanus up-to-date. (FRANCY SANCHEZ APRN) Course & Med Decision Making I have reviewed the PA/CORK CUTTER's note and Plan of Care. I was available for consultation as needed during the patient's visit in the emergency department. I agree with the clinical impression, plans and disposition. (MARY LOU CALVILLO MD) Dragon Disclaimer: Dragon Disclaimer: This electronic medical record was generated, in whole or in part, using a voice recognition dictation system. (FRANCY SANCHEZ APRN) Departure Departure Impression: Primary Impression: Lipoma Qualified Codes: D17.0 - Benign lipomatous neoplasm of skin and subcutaneous tissue of head, face and neck Additional Impressions: Neck pain Acute sinusitis Qualified Codes: J01.01 - Acute recurrent maxillary sinusitis Disposition: HOME SELF CARE/HOMELESS Condition: STABLE Referrals: DARRIN OSPINA MD (PCP) YANET COSME MD follow up in one week Patient Instructions: Lipoma-Brief Additional Instructions: You have a mass on the left side of your scalp that needs to be followed up with a general surgeon that we provided. You also have acute sinus infection or chronic sinus infection. Take the prescribed antibiotic until completed. You can also follow-up with your primary care doctor. Scripts Mupirocin (MUPIROCIN OINTMENT) 22 Gm Oint...g. 1 TUTU TP TID for WOUND CARE, #1 TUBE apply to posterior scalp lession Prov: FRANCY SANCHEZ APRN 05/12/20 Diclofenac Potassium (DICLOFENAC POTASSIUM) 50 Mg Tablet 1 TAB PO BID, #20 TAB 0 Refills Prov: FRANCY SANCHEZ APRN 05/12/20 Lidocaine (Lidocaine) 30 Gm Cream..g. 1 TUTU TP TID for 30 Days, #1 GM 0 Refills apply to lession on the scalp Prov: FRANCY SANCHEZ APRN 05/12/20 Cyclobenzaprine Hcl (CYCLOBENZAPRINE HCL) 10 Mg Tablet 1 TAB PO TID, #30 TAB Prov: FRANCY SANCHEZ APRN 05/12/20 Amoxicillin/Potassium Clav (AUGMENTIN 875-125 TABLET) 1 Each Tablet 1 TAB PO BID for 10 Days, #20 TAB 0 Refills Prov: FRANCY SANCHEZ APRN 05/12/20 FRANCY SANCHEZ APRN May 12, 2020 23:39 MARY LOU CALVILLO MD May 12, 2020 23:50
[2020-05-12] MEDS ORDERED: AMOXICILLIN/K CLAV 875/125MG TABLET. PO ONE (23:45)
[2020-05-12] MEDS ORDERED: CYCLOBENZAPRINE 10 MG TABLET. PO ONE (23:45)
[2020-05-12] MEDS ORDERED: HYDROcodone/APAP 5/325MG 1 TAB TABLET PO ONE (23:45)
[2020-05-12] MEDS ORDERED: MUPI22OI2 TP (23:50)
== END 2020-05-13 00:08 | disposition home or self-care (01) ==
LOC: ER 20:42
DX: D17.0 Benign lipomatous neoplasm of skin and subcutaneous tissue of head, face and neck (principal); J01.01 Acute recurrent maxillary sinusitis; M54.2 Cervicalgia; R22.1 Localized swelling, mass and lump, neck; F10.10 Alcohol abuse, uncomplicated; F32.9 Major depressive disorder, single episode, unspecified; K21.9 Gastro-esophageal reflux disease without esophagitis; K76.9 Liver disease, unspecified; K85.90 Acute pancreatitis without necrosis or infection, unspecified; F17.200 Nicotine dependence, unspecified, uncomplicated; F12.90 Cannabis use, unspecified, uncomplicated; Z95.0 Presence of cardiac pacemaker; Z98.890 Other specified postprocedural states
CPT/HCPCS: 70450; 99284

== ENCOUNTER 2020-06-05 17:19 | Emergency (ER) | payer MEDICAID ==
[~2020-06-05] VITALS: Ht 177.8 cm; Wt 65.0 kg
[~2020-06-05 17:19] MED LIST changes: +AMOX1TAB61 PO; +CYCL10TA2 PO; +DICL50TA2 PO; +LIDO30CR41 TP; +MUPI22OI2 TP
[2020-06-05 19:07] VITALS: BP 113/69
--- NOTE | 2020-06-05 19:46 | PHYS DOC ---
Past Medical History Past Medical History: Alcoholism, Anemia, Anxiety, Arrhythmia, Depression, GERD, Liver Disease, Pancreatitis, Other Additional Past Medical Histor: pacemaker/defib,right detached retnia,encephalopathy,alcohol abuse,ammonia Past Surgical History: Pacemaker, Other Additional Past Surgical Histo: RIGHT THUMB LIGAMENTS,LEFT EYE SOCKET RECONSTRUCTION Smoking Status: Former Smoker Alcohol Use: Heavy Drug Use: Marijuana Social History Narrative: MARIJUANA IN THE PAST General Adult EDM: Chief Complaint: MECHANICAL FALL HPI: HPI: Patient is a 55 year old male presents with left rib pain following a mechanica l fall 2 days ago. Patient sustained injuries to the left hand and right hand as well as left ribs.. Patient has moderate pain is worse with palpation and with some mild shortness of breath. Pain is localized to the left lower lateral ribs. Patient also has some mild to moderate bilateral hand pain. Hand pain is mostly on the left fourth and fifth fingers in the right third finger. Pain is worse with palpation. Review of Systems: Review of Systems: Constitutional: Denies fever or chills. [] Eyes: Denies change in visual acuity. [] HENT: Denies nasal congestion or sore throat. [] Respiratory: Denies cough but does have mild shortness of breath Cardiovascular: Complains of mild left-sided rib pain GI: Denies abdominal pain, nausea, vomiting, bloody stools or diarrhea. [] : Denies dysuria. [] Musculoskeletal: Denies back pain but complains of bilateral hand pain Integument: Denies rash. [] Neurologic: Denies headache, focal weakness or sensory changes. [] Endocrine: Denies polyuria or polydipsia. [] Lymphatic: Denies swollen glands. [] Psychiatric: Denies depression or anxiety. [] Heart Score: Risk Factors: Risk Factors: DM, Current or recent (<one month) smoker, HTN, HLP, family history of CAD, obesity. Risk Scores: Score 0 - 3: 2.5% MACE over next 6 weeks - Discharge Home Score 4 - 6: 20.3% MACE over next 6 weeks - Admit for Clinical Observation Score 7 - 10: 72.7% MACE over next 6 weeks - Early Invasive Strategies Allergies: Allergies: Allergies Coded Allergies Type Severity Reaction Last Updated Verified No Known Drug Allergies 07/04/18 No Physical Exam: PE: Constitutional: Well developed, well nourished, no acute distress, non-toxic appearance. [] HENT: Normocephalic, atraumatic, bilateral external ears normal, no trismus nose normal. [] Eyes: PERRLA, EOMI, conjunctiva normal, no discharge. [] Neck: Normal range of motion, no tenderness, supple, no stridor. [] Cardiovascular:Heart rate regular rhythm, peripheral pulses are intact cap refill is brisk Lungs & Thorax: Bilateral breath sounds clear, no respiratory distress Abdomen: soft, no tenderness, no masses, no pulsatile masses. [] Skin: Warm, dry, no erythema, no rash. [] Back: No tenderness, no CVA tenderness. [] Extremities: Mild tenderness to the right third finger and left fourth and fifth fingers. Neurovascular intact distally Neurologic: Alert and oriented X 3, normal motor function, normal sensory function, no focal deficits noted. [] Psychologic: Affect normal, judgement normal, mood normal. [] Current Patient Data: Vital Signs: Vital Signs Date Time Temp Pulse Resp B/P (MAP) Pulse Ox O2 Delivery O2 Flow Rate FiO2 06/05/20 19:07 69 16 113/69 (84) 100 Room Air EKG: EKG: [] Radiology/Procedures: Radiology/Procedures: [][facility] [address] [place] [address] IMAGING REPORT Signed PATIENT: LETICIA NO ACCOUNT: [id number] : 1965 LOCATION: ER AGE: 55 SEX: M EXAM STATUS: REG ER ORD. PHYSICIAN: MARY LOU CALVILLO MD REASON: fall PROCEDURE: RIBS LEFT AND PA CHEST Exam:Left ribs with PA chest Date: 06/05/2020 7:24 PM Comparison: No prior Indication: Reason: fall / Spl. Instructions: / History: Findings/ Impression: The heart is not enlarged. Mediastinal and hilar contours are normal. No focal parenchymal airspace opacity. No pleural effusion or pneumothorax. Cardiac generator pack obscures a portion of the left chest with leads in stable position. AP, Oblique and Spot images of the left ribs are negative for acute displaced rib fracture. A left rib fractures are again seen. Negative focal pleural elevation. Symmetrical intercostal spacing. It is of note that an acute non-displaced rib fracture can be in-apparent on initial post-trauma imaging, particularly in this patient with decreased bone mineral density. Electronically signed by: Melvin Moy MD (06/05/2020 8:23 PM) [facility] DICTATED and SIGNED BY: MELVIN MOY MD DATE: 06/05/202022 [facility] [address] [place] [address] IMAGING REPORT Signed PATIENT: LETICIA NO ACCOUNT: [id number] : 1965 LOCATION: ER AGE: 55 SEX: M EXAM STATUS: REG ER ORD. PHYSICIAN: MARY LOU CALVILLO MD REASON: fall PROCEDURE: HAND BILAT 3V EXAM: PA, oblique and lateral views of both hands DATE: 06/05/2020 7:24 PM INDICATION: Reason: fall / Spl. Instructions: / History: COMPARISON: 12/05/2017 FINDINGS: Acute fracture of the right fourth metacarpal neck with foreshortening of the right ray. Multifocal degenerative changes are seen. Decreased bone mineral density. Old fracture of the right fourth metacarpal. Scattered IP joint degenerative changes are seen. IMPRESSION: 1. Acute left fourth metacarpal neck fracture with mild foreshortening. 2. Healed right fourth metacarpal neck fracture. 3. Multifocal degenerative changes are seen. 4. Marked osteopenia. Electronically signed by: Melvin Moy MD (06/05/2020 8:25 PM) [facility] DICTATED and SIGNED BY: MELVIN MOY MD DATE: 06/05/202024 Procedure note: Clinical indication left fourth metacarpal fracture Splint application: An Ortho-Glass ulnar gutter was placed on the left hand by technician plant and maintenance. Examined by me after application, patient is neurovascular intact distally with cap refill less than 2 seconds. Course & Med Decision Making: Course & Med Decision Making Pertinent Labs and Imaging studies reviewed. (See chart for details) [] 35-year-old male with a mechanical fall. Patient complains of bilateral hand pain and left rib pain. Discussed with radiologist and he does not have any acute rib fractures and has an old right hand fracture and an acute left fourth metacarpal fracture. Patient will be placed in a ulnar gutter and follow-up with orthopedist. Are to be contacted for ISS training. Patient given pain meds and return precautions. Heidi Disclaimer: Heidi Disclaimer: This electronic medical record was generated, in whole or in part, using a voice recognition dictation system. Departure Departure Impression: Primary Impression: Fracture of fourth metacarpal bone of left hand Additional Impressions: Contusion of rib on left side Contusion of right hand Disposition: 01 DC HOME SELF CARE/HOMELESS Condition: STABLE Referrals: CHRISTIANO ALVES MD 2-3 DAYS Patient Instructions: Cast or Splint Care, Hand Fracture, Rib Contusion Additional Instructions: EMERGENCY DEPARTMENT GENERAL DISCHARGE INSTRUCTIONS THANK YOU for coming to [facility] Emergency Department (ED) today and trusting us with your care. We trust that you had a positive experience in our Emergency Department. If you wish to speak to the department Management you can contact the retail department manager at . YOUR FOLLOW UP INSTRUCTIONS ARE FOLLOWS: Do you have a private doctor? If you do not have a private doctor, please ask for a resource list of physicians or clinics that may be able to assist you with follow up care. The Emergency Physician has interpreted your x-rays. The X-ray specialist will also review them. If there is a change in the findings you will be notified in 48 hours when at all possible. A lab test or lab culture may have been done, your results will be reviewed and you will be notified if you need a change in treatment. ADDITIONAL INSTRUCTIONS AND INFORMATION Your care today has been supervised by a physician who is specially trained in emergency care. Many problems require more than one evaluation for a complete diagnosis and treatment. We recommend that you schedule your follow up appointment as recommended to ensure complete treatment of your illness or injury. If you are unable to obtain follow up care and continue to have a problem, or if your condition worsens we recommend that you return to the ED. We are not able to safely determine your condition over the phone nor are we able to give sound medical advice over the phone. For these safety reasons, if you call for medical advice we will ask you to come to the ED for further evaluation If you have any questions regarding these discharge instructions please call the ED at . SAFETY INFORMATION In the interest of safety, wellness, and injury prevention; we encourage you to wear your seatbelt, if you smoke; quit smoking, and we encourage your family to use protective helmet for bicycling and other sporting events that present an increased risk for head injury. IF YOUR SYMPTOMS WORSEN OR NEW SYMPTOMS DEVELOP, OR YOU HAVE CONCERNS ABOUT YOUR CONDITION; OR IF YOUR CONDITION WORSENS WHILE YOU ARE WAITING FOR YOUR FOLLOW UP APPOINTMENT; EITHER CONTACT YOUR PRIMARY CARE DOCTOR, THE PHYSICIAN WHOSE NAME AND NUMBER YOU WERE GIVEN, OR RETURN TO THE ED IMMEDIATELY. Scripts Hydrocodone/Apap 5-325 (NORCO 5-325 TABLET) 1 Each Tablet 1-2 EACH PO PRN Q6HRS PRN for PAIN, #15 as needed for pain Prov: MARY LOU CALVILLO MD 06/05/20 MARY LOU CALVILLO MD Jun 05, 2020 19:46
--- NOTE | 2020-06-05 20:26 | RAD ---
Exam:Left ribs with PA chest Date: 06/05/2020 7:24 PM Comparison: No prior Indication: Reason: fall / Spl. Instructions: / History: Findings/ Impression: The heart is not enlarged. Mediastinal and hilar contours are normal. No focal parenchymal airspace opacity. No pleural effusion or pneumothorax. Cardiac generator pack obscures a portion of the left chest with leads in stable position. AP, Oblique and Spot images of the left ribs are negative for acute displaced rib fracture. A left rib fractures are again seen. Negative focal pleural elevation. Symmetrical intercostal spacing. It is of note that an acute non-displaced rib fracture can be in-apparent on initial post-trauma imaging, particularly in this patient with decreased bone mineral density. Electronically signed by: Melvin Salmeron MD (06/05/2020 8:23 PM) [facility]
--- NOTE | 2020-06-05 20:28 | RAD ---
EXAM: PA, oblique and lateral views of both hands DATE: 06/05/2020 7:24 PM INDICATION: Reason: fall / Spl. Instructions: / History: COMPARISON: 12/05/2017 FINDINGS: Acute fracture of the right fourth metacarpal neck with foreshortening of the right ray. Multifocal degenerative changes are seen. Decreased bone mineral density. Old fracture of the right fourth metacarpal. Scattered IP joint degenerative changes are seen. IMPRESSION: 1. Acute left fourth metacarpal neck fracture with mild foreshortening. 2. Healed right fourth metacarpal neck fracture. 3. Multifocal degenerative changes are seen. 4. Marked osteopenia. Electronically signed by: Melvin Salmeron MD (06/05/2020 8:25 PM) [facility]
[2020-06-05] MEDS ORDERED: HYDR-3164 PO (21:59)
== END 2020-06-05 22:15 | disposition home or self-care (01) ==
LOC: ER 17:19
DX: S62.335A Displaced fracture of neck of fourth metacarpal bone, left hand, initial encounter for closed fracture (principal); S60.221A Contusion of right hand, initial encounter; S20.211A Contusion of right front wall of thorax, initial encounter; M79.642 Pain in left hand; M79.641 Pain in right hand; R07.81 Pleurodynia; R06.02 Shortness of breath; F41.9 Anxiety disorder, unspecified; K21.9 Gastro-esophageal reflux disease without esophagitis; F32.9 Major depressive disorder, single episode, unspecified; K86.1 Other chronic pancreatitis; F10.10 Alcohol abuse, uncomplicated; F12.90 Cannabis use, unspecified, uncomplicated; Z95.0 Presence of cardiac pacemaker; Z98.890 Other specified postprocedural states; Z87.891 Personal history of nicotine dependence; W18.39XA Other fall on same level, initial encounter; Y93.89 Activity, other specified; Y92.89 Other specified places as the place of occurrence of the external cause; Y99.8 Other external cause status
CPT/HCPCS: 29125; 71101; 73130; 99284

== ENCOUNTER 2020-06-09 20:47 | Emergency (ER) | payer MEDICAID ==
[~2020-06-09] VITALS: Ht 177.8 cm; Wt 70.4 kg
[~2020-06-09 20:47] MED LIST changes: +HYDR-3164 PO
[2020-06-09 21:33] VITALS: BP 118/61
== END 2020-06-09 22:24 | disposition left against medical advice (07) ==
LOC: ER 20:47
DX: Z76.0 Encounter for issue of repeat prescription (principal); Z53.21 Procedure and treatment not carried out due to patient leaving prior to being seen by health care provider